=== PATIENT | female | born 1945 | race Caucasian/White ===

== ENCOUNTER 2023-05-14 19:48 | Inpatient (IN) ==
--- NOTE | 2023-05-14 20:09 | Emergency Department Note ---
Impression & Plan Hyponatremia, CKD (chronic kidney disease) stage 3, GFR 30-59 ml/min, Fatigue ED Provider Note NAME: BHASKAR JEAN BAPTISTE AGE: 77 SEX: F : 1945 ARRIVES VIA: Walk-In INFORMANT: Patient, ED PROVIDER(S): Geoff Chen MD CHIEF COMPLAINT: Weakness and fatigue, outpatient referral MEDICAL DECISION MAKING: Patient presents for weakness and fatigue and was an outpatient referral due to concern for low sodium. I did receive a phone call from the nephrology department stating that the patient's sodium was in the 1 teens. IV was established blood work was obtained the patient was Andra ordered urine and serum awesome's as well as urine electrolytes and IV fluids. The patient's blood work shows a normal white count hemoglobin and platelet count. CKD stage III noted. Hyponatremia persistent 117. The patient was admitted to the medicine service by Dr. Stewart. Prior /Outside records reviewed: I did review the patient's blood work from earlier today. Differential diagnosis: Primary polydipsia, medication side effect, SIADH, salt wasting, kidney dysfunction among others were considered Diagnostics, as interpreted by me: ECG: Normal sinus rhythm, rate of 60, normal intervals, normal axis no ST elevations. Cardiac monitoring: An order was placed for continuous cardiac monitoring. The monitor shows a rate of 65 with sinus rhythm. Patient was placed on pulse oximetry Medical decision rules: None Imaging studies: See below I informally reviewed the patient's chest x-ray which shows cardiomegaly and prominence of the right mundo. HPI: Patient presents due to concern for weakness and fatigue which is ongoing the last several days. No nausea vomiting or diarrhea. The patient was called after some routine blood work and was noted to have low sodium in the 110s. The patient does admit to an increase in free water drinking 5 bottles of water daily. Patient also has been taking hydrochlorothiazide and Aldactone. Patient denies any falls or trauma. Patient states that she was on 4 different blood pressure medications at 1 time and that different specialties have been changing her medications including cardiology nephrology and her primary care doctor. Patient does follow with Dr. Garza with [facility]. PAST MEDICAL HISTORY: See Below PAST SURGICAL HISTORY: See Below SOCIAL HISTORY: See Below HOME MEDICATIONS: See Below ALLERGIES: See Below VITALS: See Below PHYSICAL EXAMINATION: GENERAL: NAD, wearing glasses, non-toxic. EYE EXAM: Normal conjunctiva. PERRL, no anisocoria and EOM's grossly intact w/o pain. NECK: Supple, no nuchal rigidity, no adenopathy, non-tender. No signs of meningismus. FROM of the neck with good chin to chest and neck extension. No stridor. LUNGS: Clear to auscultation. Normal chest wall mechanics. HEART: NSR, no MRG. ABDOMEN: Abdomen soft, non-tender, no masses, no rebound or guarding. BACK: No CVA TTP. SKIN: No rashes and no bruising. UPPER EXTREMITIES: Upper extremities are grossly normal. LOWER EXTREMITIES: Grossly normal, no edema. NEURO EXAM: A&O x3, cranial nerves II-XII grossly intact, normal speech, moves all 4 extremities. Past Med/Surg History Medical History Anxiety Depression Difficult airway for intubation in 2015 for hip replacement in [facility] anesthesia doc told her he had difficulty intubating her Fatigue History of COVID-19 diagnosed 01/2020--difficulty breathing was admitted to [facility] and had to be on oxygen--still experiencing brain fog and dyspnea with exertion History of left breast cancer diagnosed 12/2020--sx and on oral chemo Hyperlipidemia Hypertension Hypothyroidism IBS (irritable bowel syndrome) Macular degeneration Osteoarthritis Plantar fasciitis of left foot Post-COVID chronic dyspnea Scoliosis Surgical History History of arthroscopy of left knee x2 History of bilateral cataract extraction History of bilateral tubal ligation History of cardiac cath (~2006) @ [facility]--no stents History of cholecystectomy History of colonoscopy History of esophagogastroduodenoscopy (EGD) History of left breast biopsy malignant History of left hip replacement History of lumpectomy of left breast with lymph node removal History of open reduction and internal fixation (ORIF) procedure right ankle--hardware in place History of oral surgery dental implants History of right hip replacement History of tonsillectomy and adenoidectomy History of tooth extraction Family History Other No family history of adverse response to anesthesia Social History Smoking Status: Never smoker Second Hand Exposure: No; Do You Dip or Chew Tobacco: No; Hx Alcohol Use: Yes Alcohol Intake Frequency: Never Hx Substance Use: Yes (used medical marijuana in 2016) Preferred Language: Kyrgyz Communication Ability: Effective Recreational Leader Required: No Beliefs That Will Affect Care: None Current Living Situation: Family Current Living Situation Comment: Has own apartment in her daughter's residence Other Information That Helps Us Care for You: No Feels Safe at Home: Yes Safety Concerns: Feels Safe At This Time Diet: low salt and regular caffeine: Yes Physical Activity Frequency: Does not Exercise Assistive Devices: Cane and Glasses Allergies Allergies Allergy/AdvReac Type Severity Reaction Status Date / Time adhesive Allergy Intermediate severe Verified 05/14/23 14:37 itching sulfamethoxazole Allergy Mild Rash Verified 05/14/23 14:37 [From Bactrim] trimethoprim [From Bactrim] Allergy Mild Rash Verified 05/14/23 14:37 Home Meds Home Medications Medication Instructions Recorded Confirmed L.acidophil-L.casei-B.bifid-B.longum-FOS 1 cap PO QAM 11/16/21 05/14/23 2 billion cell-50 mg capsule (Probiotic Blend) acyclovir 200 mg capsule 800 mg PO QID PRN nerve issues 11/16/21 05/14/23 alprazolam 1 mg tablet 1 mg PO TID 11/16/21 05/14/23 anastrozole 1 mg tablet 1 mg PO QAM 11/16/21 05/14/23 ascorbic acid (vitamin C) 1,000 mg 1 g PO QAM 11/16/21 05/14/23 tablet (Vitamin C) calcium carbonate 600 mg calcium 600 mg PO QPM 11/16/21 05/14/23 (1,500 mg) tablet (Calcium) cholecalciferol (vitamin D3) 25 1,000 unit PO 2XWK 11/16/21 05/14/23 mcg (1,000 unit) tablet (Vitamin D3) docusate sodium 100 mg tablet 100 mg PO QAM 11/16/21 05/14/23 (Stool Softener) glucosamine sulf dipot 1 cap PO BID 11/16/21 05/14/23 chlr,msm,chond 550 mg-C 30 mg-guy 1 mg capsule (Glucosamine Chondroitin) levothyroxine 100 mcg tablet 100 mcg PO QAM 11/16/21 05/14/23 kxidxrgjosey-ywkpombh-jeodxl tablet 1 tab PO QAM 11/16/21 05/14/23 omega-3 fatty acids 1 mg PO BID 11/16/21 05/14/23 omeprazole 20 mg tablet,delayed 20 mg PO BID 11/16/21 05/14/23 release simvastatin 40 mg tablet 40 mg PO PM 11/16/21 05/14/23 vitamin A-vitamin C-vit E-min 1 tab PO QPM 11/16/21 05/14/23 tablet amlodipine 5 mg tablet 5 mg PO DAILY 04/03/23 05/14/23 atenolol 50 mg tablet 25 mg PO QAM 04/03/23 05/14/23 biotin 5,000 mcg disintegrating 10,000 mcg PO QPM 04/03/23 05/14/23 tablet escitalopram oxalate 20 mg tablet 20 mg PO DAILY 04/03/23 05/14/23 hydralazine 25 mg tablet 25 mg PO TID 04/03/23 05/14/23 meclizine 12.5 mg tablet 12.5 mg PO TID PRN .dizzyness 04/03/23 05/14/23 valsartan 160 mg tablet 160 mg PO DAILY 04/17/23 05/14/23 Previous Rx's Medication Instructions Recorded spironolactone 25 1 tab PO DAILY #30 tabs 05/10/23 mg-hydrochlorothiazide 25 mg tablet (Aldactazide) Results & Data (ED) Vital Signs Vital Signs - 24 hr 05/14/23 19:49 Temperature 36.5 C Temperature Source Temporal Artery Scan Pulse Rate 66 Respiratory Rate 18 Respiratory Effort / Characteristics Non-Labored Spontaneous Respiratory Depth Normal Blood Pressure 146/75 H Blood Pressure Mean 98 Blood Pressure Position Sitting Pulse Oximetry 96 Oxygen Delivery Method Room Air Sepsis Recent Fever Within 48 Hours No Sepsis New/Unexplained Change in Mental Status No Sepsis Action Taken by Nursing No Action Required Home Medications Current Medication List: was personally reviewed by me Laboratory Data Attestation: I reviewed the patient's lab results. 05/14/23 20:12 05/14/23 20:12 Lab Results 05/14/23 05/14/23 05/14/23 Range/Units 20:12 20:12 20:12 WBC 8.37 (4.8-10.8) K/ul RBC 4.26 (4.20-5.40) M/uL Hgb 13.6 (12.0-16.0) g/dl Hct 35.9 L (37.0-47.0) % MCV 84.3 (80.0-100.0) fL MCH 31.9 (25.0-34.0) pg MCHC 37.9 H (32.0-36.0) g/dL RDW Std Deviation 34.5 L (36.4-46.3) fL RDW Coeff of Sachin 11.2 L (11.5-14.5) % Plt Count 243 (130-400) K/uL MPV 8.6 L (9.4-12.4) fL Immature Gran % (Auto) 0.5 % Neut % (Auto) 69.2 % Lymph % (Auto) 20.1 % [place] % (Auto) 7.9 % Eos % (Auto) 1.9 % Baso % (Auto) 0.4 % Neut # (Auto) 5.80 (1.40-6.50) K/uL Lymph # (Auto) 1.68 (1.2-3.4) K/uL [place] # (Auto) 0.66 H (0.11-0.59) K/uL Eos # (Auto) 0.16 (0-0.50) K/uL Baso # (Auto) 0.03 (0-0.2) K/uL Immature Gran # (Auto) 0.04 (0.01-0.20) K/uL Sodium 117 L* (136-145) mmol/L Potassium 3.9 (3.5-5.1) mmol/L Chloride 86 L (98-107) mmol/L Carbon Dioxide 22 (21-32) mmol/L Anion Gap 9 (3-11) BUN 28 H (6-23) mg/dl Creatinine 1.57 H (0.6-1.2) mg/dl Est Cr Clr Drug Dosing 31.1 ml/min Est GFR ( Amer) 36.7 ml/min Est GFR (Non-Af Amer) 31.7 ml/min BUN/Creatinine Ratio 17.8 (10-20) Glucose 111 H (70-99(Fasting)) mg/dl Osmolality 255 L (280-300) mOsm/kg Calcium 9.7 (8.6-10.3) mg/dl Phosphorus 3.7 (2.5-4.9) mg/dl Magnesium 1.9 (1.7-2.4) mg/dl Total Bilirubin 0.6 (0.2-1.0) mg/dl AST 25 (13-39) U/L ALT 20 (7-52) U/L Alkaline Phosphatase 72 (34-104) U/L Total Protein 7.3 (6.0-8.3) gm/dl Albumin 4.6 (3.4-5.0) gm/dl Globulin 2.7 (2.5-4.0) gm/dl Albumin/Globulin Ratio 1.7 (0.9-2) TSH (0.300-4.500) uIu/ml 05/14/23 Range/Units 20:12 WBC (4.8-10.8) K/ul RBC (4.20-5.40) M/uL Hgb (12.0-16.0) g/dl Hct (37.0-47.0) % MCV (80.0-100.0) fL MCH (25.0-34.0) pg MCHC (32.0-36.0) g/dL RDW Std Deviation (36.4-46.3) fL RDW Coeff of Sachin (11.5-14.5) % Plt Count (130-400) K/uL MPV (9.4-12.4) fL Immature Gran % (Auto) % Neut % (Auto) % Lymph % (Auto) % [place] % (Auto) % Eos % (Auto) % Baso % (Auto) % Neut # (Auto) (1.40-6.50) K/uL Lymph # (Auto) (1.2-3.4) K/uL [place] # (Auto) (0.11-0.59) K/uL Eos # (Auto) (0-0.50) K/uL Baso # (Auto) (0-0.2) K/uL Immature Gran # (Auto) (0.01-0.20) K/uL Sodium (136-145) mmol/L Potassium (3.5-5.1) mmol/L Chloride (98-107) mmol/L Carbon Dioxide (21-32) mmol/L Anion Gap (3-11) BUN (6-23) mg/dl Creatinine (0.6-1.2) mg/dl Est Cr Clr Drug Dosing ml/min Est GFR ( Amer) ml/min Est GFR (Non-Af Amer) ml/min BUN/Creatinine Ratio (10-20) Glucose (70-99(Fasting)) mg/dl Osmolality (280-300) mOsm/kg Calcium (8.6-10.3) mg/dl Phosphorus (2.5-4.9) mg/dl Magnesium (1.7-2.4) mg/dl Total Bilirubin (0.2-1.0) mg/dl AST (13-39) U/L ALT (7-52) U/L Alkaline Phosphatase (34-104) U/L Total Protein (6.0-8.3) gm/dl Albumin (3.4-5.0) gm/dl Globulin (2.5-4.0) gm/dl Albumin/Globulin Ratio (0.9-2) TSH 2.791 (0.300-4.500) uIu/ml Administered Medications Discontinued Medications Alprazolam (Alprazolam 0.5 Mg Tablet) 1 mg PO NOW STA Stop: 05/14/23 23:25 Last Admin: 05/14/23 23:36 Dose: 1 mg Documented By: KARON Sodium Chloride (Nss 1000ml) 1,000 mls @ 999 mls/hr IV .Q1H1M ERNA Stop: 05/14/23 21:15 Last Admin: 05/14/23 20:57 Dose: Not Given Documented By: DONALD Sodium Chloride (Nss 1000ml) 500 mls @ 999 mls/hr IV .Q31M ONE Stop: 05/14/23 23:17 Last Infusion: 05/14/23 23:57 Dose: 0 mls/hr Documented By: Admin: 05/14/23 23:26 Dose: 999 mls/hr Documented By: KARON Discharge Plan Visit Data Chief Complaint: Abnormal Labs/Diagnostic Testing Stated Complaint: EXTREMELY LOW SODIUM ED Provider: Geoff Chen Discharge Problem: Hyponatremia, CKD (chronic kidney disease) stage 3, GFR 30-59 ml/min, Fatigue Patient Disposition: Admitted As Inpatient Discharge Instructions Interventions: ED Discharge Assessment Last Done: 05/14/23 21:49 CKD (chronic kidney disease) stage 3, GFR 30-59 ml/min Qualifiers: Chronic kidney disease stage 3 subtype: unspecified whether 3a or 3b Qualified Code(s): N18.30 - Chronic kidney disease, stage 3 unspecified Fatigue Qualifiers: Fatigue type: other Qualified Code(s): R53.83 - Other fatigue
[2023-05-14] MEDS ORDERED: SODIUM CHLORIDE 0.9% 1000ML 1,000 ML IV SCH (20:15)
[2023-05-14 20:36] LABS: Basophils # (auto) 0.03 K/uL (0-0.2); Basophils % (auto) 0.4 %; Eosinophils # (auto) 0.16 K/uL (0-0.50); Eosinophils % (auto) 1.9 %; Hematocrit (blood only) 35.9 % (37.0-47.0); Hemoglobin 13.6 g/dl (12.0-16.0); Immature Granulocytes # (auto) 0.04 K/uL (0.01-0.20); Immature Granulocytes % (auto) 0.5 %; Lymphocytes # (auto) 1.68 K/uL (1.2-3.4); Lymphocytes % (auto) 20.1 %; Mean Corpuscular Hemoglobin 31.9 pg (25.0-34.0); Mean Corpuscular Hgb Conc 37.9 g/dL (32.0-36.0); Mean Corpuscular Volume 84.3 fL (80.0-100.0); Mean Platelet Volume 8.6 fL (9.4-12.4); Monocytes # (auto) 0.66 K/uL (0.11-0.59); Monocytes % (auto) 7.9 %; Neutrophils % (auto) 69.2 %; Platelet Count 243 K/uL (130-400); RDW Coefficient of Variation 11.2 % (11.5-14.5); RDW Standard Deviation 34.5 fL (36.4-46.3); Red Blood Count 4.26 M/uL (4.20-5.40); White Blood Count 8.37 K/ul (4.8-10.8)
[2023-05-14 21:02] LABS: Appearance Urine Clear (Clear); Bacteria Urine Automated Negative (Negative); Bilirubin Urine Negative (Negative); Blood Urine Negative (Negative); Cast Urine Automated 0 /lpf (0-5); Color Urine Yellow; Epithelial Cell Urine Auto 20-30 /lpf (0-5); Glucose Urine UA Negative (Negative); Ketones Urine Negative (Negative); Leukocyte Esterase Urine 2+ (Negative); Nitrite Urine Negative (Negative); Protein Urine Trace (Negative); RBC Urine Automated 0-4 /hpf (0-4); Specific Gravity Urine 1.007 (1.000-1.030); Urobilinogen Urine Negative (Negative); pH Urine 6.5 (4.5-7.5)
[2023-05-14 21:04] LABS: Albumin Globulin Ratio 1.7 (0.9-2); Albumin Level 4.6 gm/dl (3.4-5.0); BUN Creatinine Ratio 17.8 (10-20); Bilirubin,Total 0.6 mg/dl (0.2-1.0); Calcium 9.7 mg/dl (8.6-10.3); Creatinine Clr Calc Pharmacy 31.1 ml/min; Est GFR (African American) 36.7 ml/min; Est GFR (Non-African American) 31.7 ml/min; Globulin 2.7 gm/dl (2.5-4.0); Magnesium 1.9 mg/dl (1.7-2.4); Phosphorus 3.7 mg/dl (2.5-4.9); Potassium 3.9 mmol/L (3.5-5.1); Total Protein 7.3 gm/dl (6.0-8.3)
[2023-05-14 21:17] LABS: Urine Potassium 23.2 mmol/L
--- NOTE | 2023-05-14 21:27 | History & Physical Report ---
Date of Service May 14, 2023 Assessment & Plan (1) Hyponatremia: Plan: 77yo female with treatment resistant hypertension likely secondary to primary aldosteronism presenting with acute hyponatremia. Patient's Jr=819. On 04/17/23 Na was 138. Patient is on HCTZ/Spironolactone. She is following a low Na diet and drinking an increased amount of free water as well. Likely mixed picture. Patient's creatinine is slightly increased from prior - Cr=1.57 from 1.48 Hypotonic, euvolemic to slightly hypovolemic. Asymptomatic. Serum osmolality is low at 255 Urine osmolality is low at 198 and urine Na=18 -Admit to PCU -Administer 500mL NSS bolus -Repeat BMP q 4 hours -Hold HCTZ/Spironolactone -Free water restrict 1200mL -Consider Nephrology consultation (2) Hypothyroidism: Plan: Chronic. TSH normal at 2.79 -Continue Synthroid 100mcg po daily (3) Chronic kidney disease, stage III (moderate): Plan: BUN and Cr mildly increased from prior. Patient reports normal UOP -NSS x 500mL -Repeat chemistry as above, q 4 hours (4) Hypertension: Plan: -Continue Amlodipine -Continue Atenolol -Continue Hydralazine 25mg po TID -Hold Valsartan for now - monitor renal function and resume tomorrow if able -Holding HCTZ/Spironolactone -Monitor BP (5) Primary aldosteronism: Plan: Patient has been seen by Neprhology for workup of her treatment resistant hypertension. She had suppressed renin and elevated aldosterone which suggests primary hyperaldosteronism. She did have a sodium load test performed which did not suppress appropriately which argues against primary aldosteronism. Patient has been on HCTZ/Spironolactone. She reports that through the addition of Spironolactone her blood pressure has been better controlled at home. Ideally she will be able to be restarted on Spironolactone after Na level improves History of Present Illness Chief Complaint: hyponatremia Primary Care Provider: Alisia Deutsch DO Annie Soto is a 77yo female with history of depression, HLP, Hypothyroid, CKD and treatment resistant HTN - suspected secondary hyperaldosteronism/primary aldosteronism. Patient has been seen by Cardiology in the past for management of her treatment resistant hypertension and has most recently been following with [facility]. She reports compliance with her low Na diet at home. On 04/17/23 she was started on Valsartan 160mg daily as well as Spironolactone/HCTZ 25mg-25mg daily. She had been on Valsartan/HCTZ prior. Her Na level on 04/17/23 was 138. She was seen by Nephrology today 05/14/23 and had orders placed for workup of her CKD and accelerated HTN. She had a chemistry performed which revealed hyponatremia, Na of 117. Patient was contacted and instructed to come to the ER. She is complaining of generalized weakness and fatigue as well as some mild nausea but denies dizziness, imbalance, falls, seizure or other neurological complaints. Denies vomiting or diarrhea. She is urinating per usual. She has been eating well. She reports she has been compliant with her medication changes. She has been eating a low sodium diet and has been drinking an increased amount of free water - approximately 5 bottles (16oz) daily. In the ER she is mildly hypertensive at 146/75, otherwise HD stable. No additional complaints at this time. Allergies Allergy/AdvReac Type Severity Reaction Status Date / Time adhesive Allergy Intermediate severe Verified 05/14/23 14:37 itching sulfamethoxazole Allergy Mild Rash Verified 05/14/23 14:37 [From Bactrim] trimethoprim [From Bactrim] Allergy Mild Rash Verified 05/14/23 14:37 Home Medications Medication Instructions Recorded Confirmed Type L.acidophil-L.casei-B.bifid-B.longum-FOS 1 cap PO QAM 11/16/21 05/14/23 History 2 billion cell-50 mg capsule (Probiotic Blend) acyclovir 200 mg capsule 800 mg PO QID PRN nerve issues 11/16/21 05/14/23 History alprazolam 1 mg tablet 1 mg PO TID 11/16/21 05/14/23 History anastrozole 1 mg tablet 1 mg PO QAM 11/16/21 05/14/23 History ascorbic acid (vitamin C) 1,000 mg 1 g PO QAM 11/16/21 05/14/23 History tablet (Vitamin C) calcium carbonate 600 mg calcium 600 mg PO QPM 11/16/21 05/14/23 History (1,500 mg) tablet (Calcium) cholecalciferol (vitamin D3) 25 1,000 unit PO 2XWK 11/16/21 05/14/23 History mcg (1,000 unit) tablet (Vitamin D3) docusate sodium 100 mg tablet 100 mg PO QAM 11/16/21 05/14/23 History (Stool Softener) glucosamine sulf dipot 1 cap PO BID 11/16/21 05/14/23 History chlr,msm,chond 550 mg-C 30 mg-guy 1 mg capsule (Glucosamine Chondroitin) levothyroxine 100 mcg tablet 100 mcg PO QAM 11/16/21 05/14/23 History yvrlyzhukpmw-rewxuuef-poaund tablet 1 tab PO QAM 11/16/21 05/14/23 History omega-3 fatty acids 1 mg PO BID 11/16/21 05/14/23 History omeprazole 20 mg tablet,delayed 20 mg PO BID 11/16/21 05/14/23 History release simvastatin 40 mg tablet 40 mg PO PM 11/16/21 05/14/23 History vitamin A-vitamin C-vit E-min 1 tab PO QPM 11/16/21 05/14/23 History tablet amlodipine 5 mg tablet 5 mg PO DAILY 04/03/23 05/14/23 History atenolol 50 mg tablet 25 mg PO QAM 04/03/23 05/14/23 History biotin 5,000 mcg disintegrating 10,000 mcg PO QPM 04/03/23 05/14/23 History tablet escitalopram oxalate 20 mg tablet 20 mg PO DAILY 04/03/23 05/14/23 History hydralazine 25 mg tablet 25 mg PO TID 04/03/23 05/14/23 History meclizine 12.5 mg tablet 12.5 mg PO TID PRN .dizzyness 04/03/23 05/14/23 History valsartan 160 mg tablet 160 mg PO DAILY 04/17/23 05/14/23 History spironolactone 25 1 tab PO DAILY #30 tabs 05/10/23 05/14/23 Rx mg-hydrochlorothiazide 25 mg tablet (Aldactazide) Past Med/Surg History Medical History Anxiety Depression Difficult airway for intubation in 2015 for hip replacement in [facility] anesthesia doc told her he had difficulty intubating her Fatigue History of COVID-19 diagnosed 01/2020--difficulty breathing was admitted to [facility] and had to be on oxygen--still experiencing brain fog and dyspnea with exertion History of left breast cancer diagnosed 12/2020--sx and on oral chemo Hyperlipidemia Hypertension Hypothyroidism IBS (irritable bowel syndrome) Macular degeneration Osteoarthritis Plantar fasciitis of left foot Post-COVID chronic dyspnea Scoliosis Surgical History History of arthroscopy of left knee x2 History of bilateral cataract extraction History of bilateral tubal ligation History of cardiac cath (~2006) @ [facility]--no stents History of cholecystectomy History of colonoscopy History of esophagogastroduodenoscopy (EGD) History of left breast biopsy malignant History of left hip replacement History of lumpectomy of left breast with lymph node removal History of open reduction and internal fixation (ORIF) procedure right ankle--hardware in place History of oral surgery dental implants History of right hip replacement History of tonsillectomy and adenoidectomy History of tooth extraction Family History Other No family history of adverse response to anesthesia Social History Smoking Status: Never smoker Second Hand Exposure: No; Do You Dip or Chew Tobacco: No; Hx Alcohol Use: No Hx Substance Use: No Preferred Language: Bruneian Communication Ability: Effective Auto Refinisher Required: No Beliefs That Will Affect Care: None Current Living Situation: Family Current Living Situation Comment: lives in apartment in daughter's house Feels Safe at Home: Yes Diet: low salt and regular caffeine: Yes Physical Activity Frequency: Does not Exercise Assistive Devices: Glasses Review of Systems Review of Systems: All systems reviewed & are unremarkable except as noted in HPI & below Physical Exam Physical Exam: General: patient resting comfortably, NAD, non-toxic in appearance, AA&O x 4, answers questions appropriately and follows commands. Skin: warm, dry, intact, no rashes or lesions HEENT: NC/AT, PERRL, EOMI, anicteric sclera, conjunctiva without injection, external ear normal to inspection and nontender, nares patent, moist mucus membranes, dentition intact, no oropharyngeal lesions, neck supple, trachea midline, no LAD, no thyromegaly, no JVD Heart: +S1/S2, regular, no m/r/g Lungs: equal air entry bilaterally, no rales/rhonchi/wheezes Abd: +BS, soft, NT/ND, no masses/organomegaly/ascites Ext: warm, 2+ pulses in UE/LE bilaterally, no clubbing/cyanosis or edema Neuro: nonfocal, patient AA&O x 4, speech intact, no facial droop, moving all extremities on command with equal strength 5/5 Results & Data Results & Data Vital Signs (Past 12 Hours) Vital Signs Temp Pulse Resp BP Pulse Ox O2 Del Method 05/14/23 19:49 36.5 C 66 18 146/75 H 96 Room Air Laboratory Results Laboratory Results WBC 8.37 K/ul (4.8-10.8) 05/14/23 20:12 RBC 4.26 M/uL (4.20-5.40) 05/14/23 20:12 Hgb 13.6 g/dl (12.0-16.0) 05/14/23 20:12 Hct 35.9 % (37.0-47.0) L 05/14/23 20:12 MCV 84.3 fL (80.0-100.0) 05/14/23 20:12 MCH 31.9 pg (25.0-34.0) 05/14/23 20:12 MCHC 37.9 g/dL (32.0-36.0) H 05/14/23 20:12 RDW Std Deviation 34.5 fL (36.4-46.3) L 05/14/23 20:12 RDW Coeff of [place] 11.2 % (11.5-14.5) L 05/14/23 20:12 Plt Count 243 K/uL (130-400) 05/14/23 20:12 MPV 8.6 fL (9.4-12.4) L 05/14/23 20:12 Immature Gran % (Auto) 0.5 % 05/14/23 20:12 Neut % (Auto) 69.2 % 05/14/23 20:12 Lymph % (Auto) 20.1 % 05/14/23 20:12 [place] % (Auto) 7.9 % 05/14/23 20:12 Eos % (Auto) 1.9 % 05/14/23 20:12 Baso % (Auto) 0.4 % 05/14/23 20:12 Neut # (Auto) 5.80 K/uL (1.40-6.50) 05/14/23 20:12 Lymph # (Auto) 1.68 K/uL (1.2-3.4) 05/14/23 20:12 [place] # (Auto) 0.66 K/uL (0.11-0.59) H 05/14/23 20:12 Eos # (Auto) 0.16 K/uL (0-0.50) 05/14/23 20:12 Baso # (Auto) 0.03 K/uL (0-0.2) 05/14/23 20:12 Immature Gran # (Auto) 0.04 K/uL (0.01-0.20) 05/14/23 20:12 Sodium 117 mmol/L (136-145) L* 05/14/23 20:12 Potassium 3.9 mmol/L (3.5-5.1) 05/14/23 20:12 Chloride 86 mmol/L (98-107) L 05/14/23 20:12 Carbon Dioxide 22 mmol/L (21-32) 05/14/23 20:12 Anion Gap 9 (3-11) 05/14/23 20:12 BUN 28 mg/dl (6-23) H 05/14/23 20:12 Creatinine 1.57 mg/dl (0.6-1.2) H 05/14/23 20:12 Est Cr Clr Drug Dosing 31.1 ml/min 05/14/23 20:12 Est GFR ( Amer) 36.7 ml/min 05/14/23 20:12 Est GFR (Non-Af Amer) 31.7 ml/min 05/14/23 20:12 BUN/Creatinine Ratio 17.8 (10-20) 05/14/23 20:12 Glucose 111 mg/dl (70-99(Fasting)) H 05/14/23 20:12 Osmolality 255 mOsm/kg (280-300) L 05/14/23 20:12 Calcium 9.7 mg/dl (8.6-10.3) 05/14/23 20:12 Phosphorus 3.7 mg/dl (2.5-4.9) 05/14/23 20:12 Magnesium 1.9 mg/dl (1.7-2.4) 05/14/23 20:12 Total Bilirubin 0.6 mg/dl (0.2-1.0) 05/14/23 20:12 AST 25 U/L (13-39) 05/14/23 20:12 ALT 20 U/L (7-52) 05/14/23 20:12 Alkaline Phosphatase 72 U/L (34-104) 05/14/23 20:12 Total Protein 7.3 gm/dl (6.0-8.3) 05/14/23 20:12 Albumin 4.6 gm/dl (3.4-5.0) 05/14/23 20:12 Globulin 2.7 gm/dl (2.5-4.0) 05/14/23 20:12 Albumin/Globulin Ratio 1.7 (0.9-2) 05/14/23 20:12 Urine Color Yellow 05/14/23 Unknown Urine Appearance Clear (Clear) 05/14/23 Unknown Urine pH 6.5 (4.5-7.5) 05/14/23 Unknown Ur Specific [place] 1.007 (1.000-1.030) 05/14/23 Unknown Urine Protein Trace (Negative) H 05/14/23 Unknown Urine Glucose (UA) Negative (Negative) 05/14/23 Unknown Urine Ketones Negative (Negative) 05/14/23 Unknown Urine Blood Negative (Negative) 05/14/23 Unknown Urine Nitrite Negative (Negative) 05/14/23 Unknown Urine Bilirubin Negative (Negative) 05/14/23 Unknown Urine Urobilinogen Negative (Negative) 05/14/23 Unknown Ur Leukocyte Esterase 2+ (Negative) H 05/14/23 Unknown Urine WBC (Auto) 10-30 /hpf (0-5) H 05/14/23 Unknown Urine RBC (Auto) 0-4 /hpf (0-4) 05/14/23 Unknown U Hyaline Cast (Auto) 0 /lpf (0-5) 05/14/23 Unknown U Epithel Cells (Auto) 20-30 /lpf (0-5) H 05/14/23 Unknown Urine Bacteria (Auto) Negative (Negative) 05/14/23 Unknown Urine Osmolality 198 mOsm/kg (500-800) L 05/14/23 Unknown Urine Sodium 18 mmol/L 05/14/23 Unknown Urine Potassium 23.2 mmol/L 05/14/23 Unknown Urine Chloride 28 mmol/L 05/14/23 Unknown SARS-CoV-2, RNA, NAAT NEGATIVE (NEGATIVE) 05/14/23 Unknown ECG Additional Comments: EKG with NSR at 60, normal axis, MQ=302, LGI=791, IBo=234. No acute ischemic changes PG Care Time/CCT Total # of Minutes Spent Total Time Spent with Patient: Total time spent is greater than 50% in coordination of care (as documented) at patient's floor/unit and/or counseling patient: Coding Level of Care Code 92558 INT INP/OBS CARE 3/75MIN Diagnoses Hyponatremia E87.1 Hypothyroidism E03.9 Chronic kidney disease, stage III (moderate) N18.30 Hypertension I10 Primary aldosteronism E26.09
[2023-05-14] MEDS ORDERED: ONDANSETRON INJ 2 MG/ML 2 ML VIAL IV PRN (22:47)
[2023-05-14] MEDS ORDERED: ACETAMINOPHEN 325 MG TAB PO PRN (22:47)
[2023-05-14] MEDS ORDERED: SODIUM CHLORIDE 0.9% 1000ML 500 ML IV ONE (22:47)
[2023-05-14] MEDS ORDERED: ALPRAZolam 0.5 MG TABLET PO STA (23:24)
[2023-05-14 23:58] LABS: BUN Creatinine Ratio 18.4 (10-20); Calcium 9.1 mg/dl (8.6-10.3); Creatinine Clr Calc Pharmacy 34.7 ml/min; Est GFR (African American) 41.8 ml/min; Est GFR (Non-African American) 36.1 ml/min; Potassium 3.6 mmol/L (3.5-5.1)
[2023-05-15 03:47] LABS: BUN Creatinine Ratio 18.5 (10-20); Calcium 8.9 mg/dl (8.6-10.3); Creatinine Clr Calc Pharmacy 35.8 ml/min; Est GFR (African American) 44.1 ml/min; Potassium 3.7 mmol/L (3.5-5.1)
[2023-05-15 03:49] LABS: Hematocrit (blood only) 32.2 % (37.0-47.0); Hemoglobin 12.1 g/dl (12.0-16.0); Mean Corpuscular Hemoglobin 31.8 pg (25.0-34.0); Mean Corpuscular Hgb Conc 37.6 g/dL (32.0-36.0); Mean Corpuscular Volume 84.5 fL (80.0-100.0); Mean Platelet Volume 8.5 fL (9.4-12.4); Platelet Count 208 K/uL (130-400); RDW Coefficient of Variation 11.2 % (11.5-14.5); RDW Standard Deviation 34.6 fL (36.4-46.3); Red Blood Count 3.81 M/uL (4.20-5.40); White Blood Count 8.78 K/ul (4.8-10.8)
[2023-05-15] MEDS: LEVOTHYROXINE SODIUM 100 MCG TABLET PO SCH (05:48)
--- NOTE | 2023-05-15 06:30 | Hospitalist Progress Note ---
Date of Service May 15, 2023 Assessment & Plan (1) Hyponatremia: Present on Admission?: Yes (2) CKD (chronic kidney disease) stage 3, GFR 30-59 ml/min: Present on Admission?: Yes (3) Hypertension: Present on Admission?: Yes (4) Primary aldosteronism: Present on Admission?: Yes (5) Chronic kidney disease, stage III (moderate): Present on Admission?: Yes (6) Hypothyroidism: Present on Admission?: Yes Plan #Hyponatremia Na+ 117-->119-->120-->121 Hypotonic, euvolemic, hypovoemic Urine Osm 198 Urine Na+ 18 Serum Osm 198 Continue fluid restriction Appreciate nephro recs: lasix 20mg po qD, spironolactone 25mg po qD, hold HCTZ, avoid salt restriction #Hypothyroidism Chronic, TSH 2.79 Continue synthroid 100mcg po daily #CKD, Stage 3 BUN, Cr mildly increased from prior. #Hypertension Monitor BP (159/77 @ 22:30, 120/64 @02:54) Continue amlodipine Continue Atenolol Continue Hydralazine Consider restarting Valsartan if BP climbs, Cr back to baseline 1.31 today Hold HCTZ #Primary Aldosteronism Follows with nephro Hx supressed renin and elevated aldosterone suggestive of primary aldosteronism However, had sodium load test which was inadequately suppressive: argues against primary aldosteronism Following addition of spironolactone home BPs have improved Restart spironolactone once Na+ level improves Admission and Anticipated Discharge Date Admission Date: May 14, 2023 Supervising Physician Co-Signing Physician Notes ATTESTATION I also saw the patient and confirmed kelley portions of the history and exam. I agree with the impression and plan in the resident documentation, and as summarized below. Upon our afternoon exam, the patient is semireclined in bed. No new complaints. Daughter is at bedside. Clarification -outpatient serum sodium was 117 (not 111 as previously reported). It sounds as if the patient was drinking quite a bit of water -she purchased cases of water -after being instructed to stay well-hydrated (presumably after the addition of the diuretics). In addition to increasing her consumption of water, she has also been pretty strict in terms of dietary sodium EXAM 143/78, 56, 18, 36.3, 95% on room air Pleasant. Alert. No distress. Heart regular rate and rhythm. 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 Prisoner Classification Interviewer notified 05/14/23 of Na 117, pt sent to ER. On presentation Na 117. Home meds include spironolactone/HCTZ follows low Na diet, drinking increased volume free water (+)generalized weakness and fatigue, "brain fog" (-) dizziness, instability, falls, seizures Resting comfortably this AM. Continues to have "brain fog". In NAD. Review of Systems Review of Systems: Reviewed, as above Physical Exam Physical Exam: General: patient resting comfortably, NAD, non-toxic in appearance, AA&O x 4, answers questions appropriately and follows commands. Skin: warm, dry, intact, no rashes or lesions HEENT: NC/AT, PERRL, EOMI, anicteric sclera, conjunctiva without injection, external ear normal to inspection and nontender, nares patent, moist mucus membranes, dentition intact, no oropharyngeal lesions, neck supple, trachea midline, no LAD, no thyromegaly, no JVD Heart: +S1/S2, regular, no m/r/g Lungs: equal air entry bilaterally, no rales/rhonchi/wheezes Abd: +BS, soft, NT/ND, no masses/organomegaly/ascites Ext: warm, 2+ pulses in UE/LE bilaterally, no clubbing/cyanosis or edema Neuro: nonfocal, patient AA&O x 4, speech intact, no facial droop, moving all extremities on command with equal strength 5/5 Results & Data Results & Data Vital Signs (Past 12 Hours) Vital Signs Temp 36.3 C L 05/15/23 07:32 Pulse 56 L 05/15/23 07:32 Resp 18 05/15/23 07:32 BP 143/78 H 05/15/23 07:32 Pulse Ox 95 05/15/23 07:32 O2 Del Method Room Air 05/15/23 07:32 Intake & Output 05/14/23 05/15/23 05/15/23 18:59 06:59 18:59 Intake Total 600 / 600 Output Total 601 / 601 Balance -1 / -1 Weight 86.7 kg Intake: IV 500 / 500 Sodium Chloride 0.9% 1000ML 500 500 / 500 ml @ 999 mls/hr IV .Q31M ONE Rx#:[id number] Oral 100 / 100 Output: Urine 600 / 600 # Bowel Movements Other: # Unmeasured Voids 1 Weight Measurement Method Built in [facility] Vital Signs Temp Pulse Pulse Resp BP BP Pulse Ox 05/15/23 02:54 36.5 C 53 L 20 120/64 94 05/14/23 22:48 65 05/14/23 22:30 36.7 C 61 18 159/77 H 97 05/14/23 21:49 63 20 136/80 95 05/14/23 19:49 36.5 C 66 18 146/75 H 96 O2 Del Method 05/15/23 02:54 Room Air 05/14/23 22:48 05/14/23 22:30 Room Air 05/14/23 21:49 Room Air 05/14/23 19:49 Room Air Laboratory Results Most recent lab results 05/15/23 05/15/23 05/15/23 Range/Units 05:37 03:16 03:16 WBC 8.78 (4.8-10.8) K/ul RBC 3.81 L (4.20-5.40) M/uL Hgb 12.1 (12.0-16.0) g/dl Hct 32.2 L (37.0-47.0) % MCV 84.5 (80.0-100.0) fL MCH 31.8 (25.0-34.0) pg MCHC 37.6 H (32.0-36.0) g/dL RDW Std Deviation 34.6 L (36.4-46.3) fL RDW Coeff of [place] 11.2 L (11.5-14.5) % Plt Count 208 (130-400) K/uL MPV 8.5 L (9.4-12.4) fL Immature Gran % (Auto) % Neut % (Auto) % Lymph % (Auto) % [place] % (Auto) % Eos % (Auto) % Baso % (Auto) % Neut # (Auto) (1.40-6.50) K/uL Lymph # (Auto) (1.2-3.4) K/uL [place] # (Auto) (0.11-0.59) K/uL Eos # (Auto) (0-0.50) K/uL Baso # (Auto) (0-0.2) K/uL Immature Gran # (Auto) (0.01-0.20) K/uL Sodium 121 L 120 L (136-145) mmol/L Potassium 3.6 3.7 (3.5-5.1) mmol/L Chloride 92 L 91 L (98-107) mmol/L Carbon Dioxide 20 L 21 (21-32) mmol/L Anion Gap 9 8 (3-11) BUN 24 H 25 H (6-23) mg/dl Creatinine 1.31 H 1.35 H (0.6-1.2) mg/dl Est Cr Clr Drug Dosing 36.9 35.8 ml/min Est GFR ( Amer) 45.7 44.1 ml/min Est GFR (Non-Af Amer) 39.5 38.0 ml/min BUN/Creatinine Ratio 18.3 18.5 (10-20) Glucose 121 H 108 H (70-99(Fasting)) mg/dl Osmolality (280-300) mOsm/kg Calcium 8.9 8.9 (8.6-10.3) mg/dl Phosphorus (2.5-4.9) mg/dl Magnesium (1.7-2.4) mg/dl Total Bilirubin (0.2-1.0) mg/dl AST (13-39) U/L ALT (7-52) U/L Alkaline Phosphatase (34-104) U/L Total Protein (6.0-8.3) gm/dl Albumin (3.4-5.0) gm/dl Globulin (2.5-4.0) gm/dl Albumin/Globulin Ratio (0.9-2) TSH (0.300-4.500) uIu/ml Urine Color Urine Appearance (Clear) Urine pH (4.5-7.5) Ur Specific [place] (1.000-1.030) Urine Protein (Negative) Urine Glucose (UA) (Negative) Urine Ketones (Negative) Urine Blood (Negative) Urine Nitrite (Negative) Urine Bilirubin (Negative) Urine Urobilinogen (Negative) Ur Leukocyte Esterase (Negative) Urine WBC (Auto) (0-5) /hpf Urine RBC (Auto) (0-4) /hpf U Hyaline Cast (Auto) (0-5) /lpf U Epithel Cells (Auto) (0-5) /lpf Urine Bacteria (Auto) (Negative) Urine Osmolality (500-800) mOsm/kg Urine Sodium mmol/L Urine Potassium mmol/L Urine Chloride mmol/L SARS-CoV-2, RNA, NAAT (NEGATIVE) 05/14/23 05/14/23 05/14/23 Range/Units Unknown Unknown Unknown WBC (4.8-10.8) K/ul RBC (4.20-5.40) M/uL Hgb (12.0-16.0) g/dl Hct (37.0-47.0) % MCV (80.0-100.0) fL MCH (25.0-34.0) pg MCHC (32.0-36.0) g/dL RDW Std Deviation (36.4-46.3) fL RDW Coeff of Sach[place] (11.5-14.5) % Plt Count (130-400) K/uL MPV (9.4-12.4) fL Immature Gran % (Auto) % Neut % (Auto) % Lymph % (Auto) % [place] % (Auto) % Eos % (Auto) % Baso % (Auto) % Neut # (Auto) (1.40-6.50) K/uL Lymph # (Auto) (1.2-3.4) K/uL [place] # (Auto) (0.11-0.59) K/uL Eos # (Auto) (0-0.50) K/uL Baso # (Auto) (0-0.2) K/uL Immature Gran # (Auto) (0.01-0.20) K/uL Sodium (136-145) mmol/L Potassium (3.5-5.1) mmol/L Chloride (98-107) mmol/L Carbon Dioxide (21-32) mmol/L Anion Gap (3-11) BUN (6-23) mg/dl Creatinine (0.6-1.2) mg/dl Est Cr Clr Drug Dosing ml/min Est GFR ( Amer) ml/min Est GFR (Non-Af Amer) ml/min BUN/Creatinine Ratio (10-20) Glucose (70-99(Fasting)) mg/dl Osmolality (280-300) mOsm/kg Calcium (8.6-10.3) mg/dl Phosphorus (2.5-4.9) mg/dl Magnesium (1.7-2.4) mg/dl Total Bilirubin (0.2-1.0) mg/dl AST (13-39) U/L ALT (7-52) U/L Alkaline Phosphatase (34-104) U/L Total Protein (6.0-8.3) gm/dl Albumin (3.4-5.0) gm/dl Globulin (2.5-4.0) gm/dl Albumin/Globulin Ratio (0.9-2) TSH (0.300-4.500) uIu/ml Urine Color Yellow Urine Appearance Clear (Clear) Urine pH 6.5 (4.5-7.5) Ur Specific [place] 1.007 (1.000-1.030) Urine Protein Trace H (Negative) Urine Glucose (UA) Negative (Negative) Urine Ketones Negative (Negative) Urine Blood Negative (Negative) Urine Nitrite Negative (Negative) Urine Bilirubin Negative (Negative) Urine Urobilinogen Negative (Negative) Ur Leukocyte Esterase 2+ H (Negative) Urine WBC (Auto) 10-30 H (0-5) /hpf Urine RBC (Auto) 0-4 (0-4) /hpf U Hyaline Cast (Auto) 0 (0-5) /lpf U Epithel Cells (Auto) 20-30 H (0-5) /lpf Urine Bacteria (Auto) Negative (Negative) Urine Osmolality 198 L (500-800) mOsm/kg Urine Sodium 18 mmol/L Urine Potassium 23.2 mmol/L Urine Chloride 28 mmol/L SARS-CoV-2, RNA, NAAT (NEGATIVE) 05/14/23 05/14/23 05/14/23 Range/Units Unknown 23:13 20:12 WBC (4.8-10.8) K/ul RBC (4.20-5.40) M/uL Hgb (12.0-16.0) g/dl Hct (37.0-47.0) % MCV (80.0-100.0) fL MCH (25.0-34.0) pg MCHC (32.0-36.0) g/dL RDW Std Deviation (36.4-46.3) fL RDW Coeff of Sachin (11.5-14.5) % Plt Count (130-400) K/uL MPV (9.4-12.4) fL Immature Gran % (Auto) % Neut % (Auto) % Lymph % (Auto) % [place] % (Auto) % Eos % (Auto) % Baso % (Auto) % Neut # (Auto) (1.40-6.50) K/uL Lymph # (Auto) (1.2-3.4) K/uL [place] # (Auto) (0.11-0.59) K/uL Eos # (Auto) (0-0.50) K/uL Baso # (Auto) (0-0.2) K/uL Immature Gran # (Auto) (0.01-0.20) K/uL Sodium 119 L* (136-145) mmol/L Potassium 3.6 (3.5-5.1) mmol/L Chloride 88 L (98-107) mmol/L Carbon Dioxide 21 (21-32) mmol/L Anion Gap 10 (3-11) BUN 26 H (6-23) mg/dl Creatinine 1.41 H (0.6-1.2) mg/dl Est Cr Clr Drug Dosing 34.7 ml/min Est GFR ( Amer) 41.8 ml/min Est GFR (Non-Af Amer) 36.1 ml/min BUN/Creatinine Ratio 18.4 (10-20) Glucose 129 H (70-99(Fasting)) mg/dl Osmolality (280-300) mOsm/kg Calcium 9.1 (8.6-10.3) mg/dl Phosphorus (2.5-4.9) mg/dl Magnesium (1.7-2.4) mg/dl Total Bilirubin (0.2-1.0) mg/dl AST (13-39) U/L ALT (7-52) U/L Alkaline Phosphatase (34-104) U/L Total Protein (6.0-8.3) gm/dl Albumin (3.4-5.0) gm/dl Globulin (2.5-4.0) gm/dl Albumin/Globulin Ratio (0.9-2) TSH 2.791 (0.300-4.500) uIu/ml Urine Color Urine Appearance (Clear) Urine pH (4.5-7.5) Ur Specific [place] (1.000-1.030) Urine Protein (Negative) Urine Glucose (UA) (Negative) Urine Ketones (Negative) Urine Blood (Negative) Urine Nitrite (Negative) Urine Bilirubin (Negative) Urine Urobilinogen (Negative) Ur Leukocyte Esterase (Negative) Urine WBC (Auto) (0-5) /hpf Urine RBC (Auto) (0-4) /hpf U Hyaline Cast (Auto) (0-5) /lpf U Epithel Cells (Auto) (0-5) /lpf Urine Bacteria (Auto) (Negative) Urine Osmolality (500-800) mOsm/kg Urine Sodium mmol/L Urine Potassium mmol/L Urine Chloride mmol/L SARS-CoV-2, RNA, NAAT NEGATIVE (NEGATIVE) 05/14/23 05/14/23 05/14/23 Range/Units 20:12 20:12 20:12 WBC 8.37 (4.8-10.8) K/ul RBC 4.26 (4.20-5.40) M/uL Hgb 13.6 (12.0-16.0) g/dl Hct 35.9 L (37.0-47.0) % MCV 84.3 (80.0-100.0) fL MCH 31.9 (25.0-34.0) pg MCHC 37.9 H (32.0-36.0) g/dL RDW Std Deviation 34.5 L (36.4-46.3) fL RDW Coeff of [place] 11.2 L (11.5-14.5) % Plt Count 243 (130-400) K/uL MPV 8.6 L (9.4-12.4) fL Immature Gran % (Auto) 0.5 % Neut % (Auto) 69.2 % Lymph % (Auto) 20.1 % [place] % (Auto) 7.9 % Eos % (Auto) 1.9 % Baso % (Auto) 0.4 % Neut # (Auto) 5.80 (1.40-6.50) K/uL Lymph # (Auto) 1.68 (1.2-3.4) K/uL [place] # (Auto) 0.66 H (0.11-0.59) K/uL Eos # (Auto) 0.16 (0-0.50) K/uL Baso # (Auto) 0.03 (0-0.2) K/uL Immature Gran # (Auto) 0.04 (0.01-0.20) K/uL Sodium 117 L* (136-145) mmol/L Potassium 3.9 (3.5-5.1) mmol/L Chloride 86 L (98-107) mmol/L Carbon Dioxide 22 (21-32) mmol/L Anion Gap 9 (3-11) BUN 28 H (6-23) mg/dl Creatinine 1.57 H (0.6-1.2) mg/dl Est Cr Clr Drug Dosing 31.1 ml/min Est GFR ( Amer) 36.7 ml/min Est GFR (Non-Af Amer) 31.7 ml/min BUN/Creatinine Ratio 17.8 (10-20) Glucose 111 H (70-99(Fasting)) mg/dl Osmolality 255 L (280-300) mOsm/kg Calcium 9.7 (8.6-10.3) mg/dl Phosphorus 3.7 (2.5-4.9) mg/dl Magnesium 1.9 (1.7-2.4) mg/dl Total Bilirubin 0.6 (0.2-1.0) mg/dl AST 25 (13-39) U/L ALT 20 (7-52) U/L Alkaline Phosphatase 72 (34-104) U/L Total Protein 7.3 (6.0-8.3) gm/dl Albumin 4.6 (3.4-5.0) gm/dl Globulin 2.7 (2.5-4.0) gm/dl Albumin/Globulin Ratio 1.7 (0.9-2) TSH (0.300-4.500) uIu/ml Urine Color Urine Appearance (Clear) Urine pH (4.5-7.5) Ur Specific [place] (1.000-1.030) Urine Protein (Negative) Urine Glucose (UA) (Negative) Urine Ketones (Negative) Urine Blood (Negative) Urine Nitrite (Negative) Urine Bilirubin (Negative) Urine Urobilinogen (Negative) Ur Leukocyte Esterase (Negative) Urine WBC (Auto) (0-5) /hpf Urine RBC (Auto) (0-4) /hpf U Hyaline Cast (Auto) (0-5) /lpf U Epithel Cells (Auto) (0-5) /lpf Urine Bacteria (Auto) (Negative) Urine Osmolality (500-800) mOsm/kg Urine Sodium mmol/L Urine Potassium mmol/L Urine Chloride mmol/L SARS-CoV-2, RNA, NAAT (NEGATIVE) Resident Activity Tracking Resident Involvement: Resident Care Provided Care Provided: Adult Hospital Medicine (2) CKD (chronic kidney disease) stage 3, GFR 30-59 ml/min Chronic kidney disease stage 3 subtype: unspecified whether 3a or 3b Qualified Code(s): N18.30 - Chronic kidney disease, stage 3 unspecified
[2023-05-15 06:51] LABS: BUN Creatinine Ratio 18.3 (10-20); Calcium 8.9 mg/dl (8.6-10.3); Creatinine Clr Calc Pharmacy 36.9 ml/min; Est GFR (African American) 45.7 ml/min; Est GFR (Non-African American) 39.5 ml/min; Potassium 3.6 mmol/L (3.5-5.1)
--- NOTE | 2023-05-15 07:28 | XRay Report ---
SINGLE VIEW CHEST CLINICAL HISTORY: Generalized weakness. FINDINGS: An AP, portable, upright chest radiograph is obtained. No prior studies are available for c omparison at the time of dictation. The examination is degraded by portable technique and patient rot ation. The heart is enlarged noting atherosclerotic calcification of the thoracic aorta. There is pu lmonary vascular congestion. Scarring/atelectasis is present at both lung bases. No airspace consolid ation or large pleural effusion is identified. No pneumothorax is seen. The skeletal structures are o steopenic. The bony thorax is grossly intact. Bulky calcific tendinopathy is noted in the left should er. Degenerative change and scoliosis is noted in the spine. IMPRESSION: Cardiomegaly with pulmonary vascular congestion. ACT 112: Negative or not required by law. Electronically signed by: Kenny Mock M.D. 05/15/2023 7:27 AM
[2023-05-15] MEDS: ATENOLOL 25 MG TABLET PO SCH (08:33)
[2023-05-15] MEDS: amLODIPine BESYLATE 5 MG TAB PO SCH (08:34)
[2023-05-15] MEDS: ESCITALOPRAM OXALATE 20 MG TAB PO SCH (08:34)
[2023-05-15] MEDS: ANASTROZOLE 1 MG TAB PO SCH (08:34)
[2023-05-15] MEDS: hydrALAZINE HCL 25 MG TAB PO SCH ×3 (08:34→22:01)
[2023-05-15] MEDS: PANTOprazole 40 MG TAB PO SCH (08:34)
[2023-05-15] MEDS: ALPRAZolam 0.5 MG TABLET PO SCH ×3 (08:40→22:01)
[2023-05-15 11:49] LABS: BUN Creatinine Ratio 17.4 (10-20); Calcium 9.4 mg/dl (8.6-10.3); Creatinine Clr Calc Pharmacy 36.7 ml/min; Est GFR (African American) 45.3 ml/min; Est GFR (Non-African American) 39.1 ml/min; Potassium 4.2 mmol/L (3.5-5.1)
--- NOTE | 2023-05-15 12:58 | Nephrology Consultation ---
Date of Consultation May 15, 2023 Assessment & Plan (1) Hyponatremia: (2) Hypertension: (3) Fatigue: Plan Hyponatremia with prior normal serum sodium, sodium was 117 and last sodium from 04/17/2023 was 138 with no prior known history of hyponatremia although we do not have record before March 2023. she was recently started on spironolactone and hydrochlorothiazide for poorly controlled hypertension, in addition to that she has been drinking more in water to keep her well-hydrated and completely avoiding salt in her diet, which could be contributing to acute hyponatremia. Sodium slightly improved to 121 after receiving 2 L of normal saline since admission last night. Urine osmolality was low at 197. No history of hypothyroidism or adrenal insufficiency, in fact there was concern for primary hyperaldosteronism but salt loading testing did not support that. She did r eport her blood pressure much improved after started on spironolactone. -- start on Lasix 20 mg daily, continue on spironolactone 25 mg, amlodipine. Avoid thiazide type diuretics in future. -- check serum sodium now, Continue to monitor serum sodium q.6 hours discharge until sodium close to at least 130 -- avoid strict salt restriction, ok to keep salt intake around 2 mg/d, avoid excessive free water intake. Thank you for allowing me to participate in your patient's care. It was a pleasure to see Annie History of Present Illness Reason for Consultation: Acute hyponatremia Attending Physician: Fabricio Dong DO History of Present Illness Aris Clifton is a 77-year-old female with past medical history significant for poorly controlled hypertension, admitted to the hospital with acute hyponatremia. Nephrology consult was requested for further management. EMR records are reviewed in detail during patient's visit. Annie had a routine lab ordered from hypertension clinic yesterday showed acute hyponatremia with serum sodium 117, prior serum sodium was 138 on 04/17/2023. She was called and advised to stop HCTZ and go to ER last evening. She has been having poorly-controlled hypertension and recently there was concern for primary aldosteronism however salt loading test did not support the diagnosis of primary hyperaldosteronism. She was on spironolactone 50/hydrochlorothiazide 25 mg/d. she reported feeling just fatigued Over the last few days and has been progressively worsening and yesterday overall she was feeling "awful" but did not really understand why she was feeling that way. She felt like she needs to eat something salty to make her feel better as she has been completely avoiding salt in her diet over last few weeks since she was found to have poorly controlled hypertension and advised to follow low-salt diet. She reports she also has been drinking a lot to keep her well hydrated. Denied NSAID use. In ER hemodynamically she was otherwise stable. She was initially given 1 L of IV fluid bolus and overnight serum sodium improved to 121 and stayed at 121 since this morning. Urine osmolality was appropriately low < 200. Blood pressure has been quite variable but mostly fairly controlled and better than her recent blood pressures. She was continued on amlodipine 5 mg daily and atenolol 25 mg daily. She has been getting evaluated for poorly controlled hypertension. She was noted to have elevated Aldosterone/renin levels, labs from February 2023 reflect renin <0.1 and aldosterone of 35.5 with history of hypokalemia for years, were suspicious for primary aldosteronism however aldosterone was suppressed appropriately with salt loading test done recently which argues against primary hyperaldosteronism. 2D echo from 11/26 shows ef 55% with no LVH. Has history of stage III B CKD b/l cr 1.4 to 1.5, records available only from 03/20/23, thought to be secondary to microvascular disease and hypertensive nephrosclerosis, has been following with Dr. Ortega. Urinalysis with low-grade proteinuria, microalbumin creatinine ratio was 600, noted to have pyuria without bacteriuria or microscopic hematuria. No renal imaging available. no f/h of CKD, ESRD. Never smoker. Retired, moved to [place] 2 years ago to be close to her daughter. has history of breast cancer diagnosed in 2020, had lumpectomy and currently on hormone therapy, did not read radiation or chemo. No history of diabetes, coronary artery disease or CHF. She still feels weak and tired but feels slightly better than yesterday. Allergies Allergy/AdvReac Type Severity Reaction Status Date / Time adhesive Allergy Intermediate severe Verified 05/14/23 14:37 itching sulfamethoxazole Allergy Mild Rash Verified 05/14/23 14:37 [From Bactrim] trimethoprim [From Bactrim] Allergy Mild Rash Verified 05/14/23 14:37 Home Medications Medication Instructions Recorded Confirmed Type L.acidophil-L.casei-B.bifid-B.longum-FOS 1 cap PO QAM 11/16/21 05/14/23 History 2 billion cell-50 mg capsule (Probiotic Blend) acyclovir 200 mg capsule 800 mg PO QID PRN nerve issues 11/16/21 05/14/23 History alprazolam 1 mg tablet 1 mg PO TID 11/16/21 05/14/23 History anastrozole 1 mg tablet 1 mg PO QAM 11/16/21 05/14/23 History ascorbic acid (vitamin C) 1,000 mg 1 g PO QAM 11/16/21 05/14/23 History tablet (Vitamin C) calcium carbonate 600 mg calcium 600 mg PO QPM 11/16/21 05/14/23 History (1,500 mg) tablet (Calcium) cholecalciferol (vitamin D3) 25 1,000 unit PO 2XWK 11/16/21 05/14/23 History mcg (1,000 unit) tablet (Vitamin D3) docusate sodium 100 mg tablet 100 mg PO QAM 11/16/21 05/14/23 History (Stool Softener) glucosamine sulf dipot 1 cap PO BID 11/16/21 05/14/23 History chlr,msm,chond 550 mg-C 30 mg-guy 1 mg capsule (Glucosamine Chondroitin) levothyroxine 100 mcg tablet 100 mcg PO QAM 11/16/21 05/14/23 History qqdkkjtephmc-brrclvsb-yxpuky tablet 1 tab PO QAM 11/16/21 05/14/23 History omega-3 fatty acids 1 mg PO BID 11/16/21 05/14/23 History omeprazole 20 mg tablet,delayed 20 mg PO BID 11/16/21 05/14/23 History release simvastatin 40 mg tablet 40 mg PO PM 11/16/21 05/14/23 History vitamin A-vitamin C-vit E-min 1 tab PO QPM 11/16/21 05/14/23 History tablet amlodipine 5 mg tablet 5 mg PO DAILY 04/03/23 05/14/23 History atenolol 50 mg tablet 25 mg PO QAM 04/03/23 05/14/23 History biotin 5,000 mcg disintegrating 10,000 mcg PO QPM 04/03/23 05/14/23 History tablet escitalopram oxalate 20 mg tablet 20 mg PO DAILY 04/03/23 05/14/23 History hydralazine 25 mg tablet 25 mg PO TID 04/03/23 05/14/23 History meclizine 12.5 mg tablet 12.5 mg PO TID PRN .dizzyness 04/03/23 05/14/23 History valsartan 160 mg tablet 160 mg PO DAILY 04/17/23 05/14/23 History spironolactone 25 1 tab PO DAILY #30 tabs 05/10/23 05/14/23 Rx mg-hydrochlorothiazide 25 mg tablet (Aldactazide) Patient History Medical History Anxiety Depression Difficult airway for intubation in 2015 for hip replacement in [facility] anesthesia doc told her he had difficulty intubating her Fatigue History of COVID-19 diagnosed 01/2020--difficulty breathing was admitted to [facility] and had to be on oxygen--still experiencing brain fog and dyspnea with exertion History of left breast cancer diagnosed 12/2020--sx and on oral chemo Hyperlipidemia Hypertension Hypothyroidism IBS (irritable bowel syndrome) Macular degeneration Osteoarthritis Plantar fasciitis of left foot Post-COVID chronic dyspnea Scoliosis Surgical History History of arthroscopy of left knee x2 History of bilateral cataract extraction History of bilateral tubal ligation History of cardiac cath (~2006) @ [facility]--no stents History of cholecystectomy History of colonoscopy History of esophagogastroduodenoscopy (EGD) History of left breast biopsy malignant History of left hip replacement History of lumpectomy of left breast with lymph node removal History of open reduction and internal fixation (ORIF) procedure right ankle--hardware in place History of oral surgery dental implants History of right hip replacement History of tonsillectomy and adenoidectomy History of tooth extraction Family History Other No family history of adverse response to anesthesia Social History Smoking Status: Never smoker Second Hand Exposure: No; Do You Dip or Chew Tobacco: No; Hx Alcohol Use: Yes Alcohol Intake Frequency: Never Hx Substance Use: Yes (used medical marijuana in 2015) Preferred Language: [place] Communication Ability: Effective Licensed Surveyor Required: No Beliefs That Will Affect Care: None Current Living Situation: Family Current Living Situation Comment: Has own apartment in her daughter's residence Other Information That Helps Us Care for You: No Feels Safe at Home: Yes Safety Concerns: Feels Safe At This Time Diet: low salt and regular caffeine: Yes Physical Activity Frequency: Does not Exercise Assistive Devices: Cane and Glasses Review of Systems Review of Systems: Detailed review of system was otherwise unremarkable except mentioned above. Physical Exam Constitutional: WD/WN, vitals as above no acute distress Eyes: + anicteric sclerae Neck: normal visual inspection Thyroid: no thyromegaly Respiratory: normal respiratory effort; no respiratory distress and no cough Auscultation: lungs clear to auscultation bilaterally Cardiovascular: RRR, no murmur, no edema Gastrointestinal (Abdomen): Inspection/Auscultation: abdomen normal to inspection Percussion/Palpation: abdomen soft; abdomen nontender Musculoskeletal: Extremities: extremities normal to inspection Skin: no rashes, warm and dry Neurologic: no focal motor deficits and not confused Psychiatric: Orientation: alert and oriented x 3 Affect: euthymic affect Results & Data Vital Signs (Past 12 Hours) Vital Signs Temp Pulse Pulse Resp BP Pulse Ox O2 Del Method 05/15/23 11:50 Room Air 05/15/23 10:09 53 L 05/15/23 07:32 36.3 C L 56 L 18 143/78 H 95 Room Air 05/15/23 02:54 36.5 C 53 L 20 120/64 94 Room Air PG Care Time/CCT Total # of Minutes Spent Total Time Spent with Patient: Total time spent is greater than 50% in coordination of care (as documented) at patient's floor/unit and/or counseling patient: Coding Level of Care Code 85292 IN/OBS CONSULT LVL 5,80M Diagnoses Hyponatremia E87.1 Hypertension I10 Fatigue R53.83 Fatigue type: other (3) Fatigue Fatigue type: other Qualified Code(s): R53.83 - Other fatigue
[2023-05-15] MEDS ORDERED: FUROSEMIDE 20 MG TAB PO SCH ×2 (14:30→16:00)
[2023-05-15] MEDS: SPIRONOLACTONE 25 MG TAB PO SCH (15:12)
[2023-05-15 17:00] LABS: BUN Creatinine Ratio 15.8 (10-20); Creatinine Clr Calc Pharmacy 31.8 ml/min; Est GFR (African American) 38.2 ml/min; Potassium 4.3 mmol/L (3.5-5.1)
--- NOTE | 2023-05-15 17:50 | Electrocardiogram Report ---
Test Reason : Blood Pressure : / mmHG Vent. Rate : 060 BPM Atrial Rate : 060 BPM P-R Int : 182 ms QRS Dur : 102 ms QT Int : 436 ms P-R-T Axes : 044 002 045 degrees QTc Int : 436 ms Normal sinus rhythm Moderate voltage criteria for LVH, may be normal variant Borderline ECG No previous ECGs available Confirmed by Carl Stout ([id number]) on 05/15/2023 5:49:57 PM Referred By: Jayda Yadav Confirmed By:Carl Stout
[2023-05-15] MEDS ORDERED: MELATONIN 3 MG TAB PO PRN (21:15)
[2023-05-15] MEDS: SIMVASTATIN 40 MG TAB PO SCH (22:01)
[2023-05-15 22:52] LABS: BUN Creatinine Ratio 17.2 (10-20); Calcium 9.3 mg/dl (8.6-10.3); Creatinine Clr Calc Pharmacy 30.8 ml/min; Est GFR (African American) 36.7 ml/min; Est GFR (Non-African American) 31.7 ml/min; Potassium 3.8 mmol/L (3.5-5.1)
[2023-05-16 04:44] LABS: Albumin Level 3.9 gm/dl (3.4-5.0); BUN Creatinine Ratio 17.8 (10-20); Calcium 9.2 mg/dl (8.6-10.3); Creatinine Clr Calc Pharmacy 28.6 ml/min; Est GFR (African American) 33.6 ml/min; Phosphorus 4.5 mg/dl (2.5-4.9); Potassium 4.1 mmol/L (3.5-5.1)
[2023-05-16] MEDS: LEVOTHYROXINE SODIUM 100 MCG TABLET PO SCH (06:09)
--- NOTE | 2023-05-16 07:01 | Ultrasound Report ---
US duplex renal artery CLINICAL HISTORY: hypertension COMPARISON STUDY: None. FINDINGS: The right kidney measures 10.9 cm and the left kidney measures 16 cm. Multiple bilateral re nal cysts with the largest on the left measuring 7.3 cm. The bilateral renal veins are patent. Peak s ystolic velocities within the right renal artery is 116 cm/s and the left renal artery is 94 cm/s. No hydronephrosis. IMPRESSION: 1. No evidence for renal artery stenosis. 2. Bilateral renal cysts. 3. No hydronephrosis. ACT 112: Negative or not required by law. Electronically signed by: Balwinder Childress M.D. 05/16/2023 6:59 AM
--- NOTE | 2023-05-16 07:16 | Hospitalist Progress Note ---
Date of Service May 16, 2023 Assessment & Plan (1) Hyponatremia: (2) CKD (chronic kidney disease) stage 3, GFR 30-59 ml/min: (3) Hypertension: (4) Primary aldosteronism: (5) Hypothyroidism: Plan #Hyponatremia Na+ 117-->119-->120-->121-->125-->127 Remove fluid restriction, d/c lasix, continue to encourage reasonable salt intake Appreciate nephro recs: spironolactone 25mg po qD, hold lasix, hold HCTZ, avoid salt restriction #Hypothyroidism Chronic, TSH 2.79 Continue synthroid 100mcg po daily #CKD, Stage 3 BUN, Cr mildly increased from prior. Cr 1.32-->1.57-->1.69 (baseline 1.3-1.4) Renal US 05/16/23 no renal artery stenosis, no renal cysts, no hydronephrosis b/l #Hypertension BP Stable 120s-130s/60s-70s over past 24hrs Continue to monitor Continue amlodipine Continue Atenolol Continue Hydralazine Consider restarting Valsartan if BP climbs, Cr back to baseline 1.31 today Hold HCTZ #Primary Aldosteronism Follows with nephro Hx supressed renin and elevated aldosterone suggestive of primary aldosteronism However, had sodium load test which was inadequately suppressive: argues against primary aldosteronism Following addition of spironolactone home BPs have improved Restart spironolactone once Na+ level improves Admission and Anticipated Discharge Date Admission Date: May 14, 2023 Supervising Physician Co-Signing Physician Notes ATTESTATION I also saw the patient and confirmed kelley portions of the history and exam. I agree with the impression and plan in the resident documentation, and as summarized below. Upon my morning exam, she reports generally feeling better. EXAM 148/77, 69, 16, 36.8, 90% room air Pleasant. Alert. No distress. Heart regular rate and rhythm. Lungs clear with nonlabored respirations DATA Labs Sodium 127 BUN 30, creatinine 1.69 Imaging Renal ultrasound completed 05/14/2023 showed no evidence of renal artery stenosis, bilateral renal cyst, no hydronephrosis. IMPRESSION & PLAN Hyponatremia, suspect hypervolemic, improving Appreciate nephrology consultation Repeat BMP this afternoon If continues to improve at present (and appropriate) rate, may be ready for discharge tomorrow Fortunately, blood pressure is maintained fairly well controlled At present on amlodipine 5 once daily, hydralazine 25 three times daily, and Aldactone 25 mg once daily Patient was on valsartan prior to admission; will discuss with nephrology if they want her on some amount of ARB upon discharge Avoid thiazide diuretics in the future Additional per resident documentation Subjective 77 yo female PMHx depression, HLP, hypothyroidism, CKD and treatment resistant hypertension likely secondary to primary aldosteronism presents with acute hyponatremia. Rn Ante Partum notified 05/14/23 of Na 117, pt sent to ER. On presentation Na 117. Home meds include spironolactone/HCTZ follows low Na diet, drinking increased volume free water (+)generalized weakness and fatigue, "brain fog" (-) dizziness, instability, falls, seizures Resting comfortably this AM. Feeling better today. In NAD. Review of Systems Review of Systems: reviewed, as above Physical Exam Physical Exam: General: patient resting comfortably, NAD, non-toxic in appearance, AA&O x 4, answers questions appropriately and follows commands. Skin: warm, dry, intact, no rashes or lesions HEENT: NC/AT, PERRL, EOMI, anicteric sclera, conjunctiva without injection, external ear normal to inspection and nontender, nares patent, moist mucus membranes, dentition intact, no oropharyngeal lesions, neck supple, trachea midline, no LAD, no thyromegaly, no JVD Heart: +S1/S2, regular, no m/r/g Lungs: equal air entry bilaterally, no rales/rhonchi/wheezes Abd: +BS, soft, NT/ND, no masses/organomegaly/ascites Ext: warm, 2+ pulses in UE/LE bilaterally, no clubbing/cyanosis or edema Neuro: nonfocal, patient AA&O x 4, speech intact, no facial droop, moving all extremities on command with equal strength 5/5 Results & Data Results & Data Vital Signs (Past 12 Hours) Vital Signs Temp Pulse Pulse Resp BP Pulse Ox O2 Del Method 05/16/23 03:00 36.8 C 64 16 132/71 92 Room Air 05/15/23 22:06 67 05/15/23 23:00 36.6 C 62 21 122/68 93 Room Air 05/15/23 19:45 Room Air Laboratory Results Abnormal lab results 05/15/23 05/15/23 05/15/23 Range/Units 10:53 15:58 22:23 Sodium 121 L 123 L 125 L (136-145) mmol/L Chloride 92 L 93 L 95 L (98-107) mmol/L Carbon Dioxide 20 L 20 L (21-32) mmol/L BUN 24 H 27 H (6-23) mg/dl Creatinine 1.32 H 1.52 H 1.57 H (0.6-1.2) mg/dl Glucose 115 H 119 H 155 H (70-99(Fasting)) mg/dl 05/16/23 Range/Units 04:13 Sodium 127 L (136-145) mmol/L Chloride 97 L (98-107) mmol/L Carbon Dioxide (21-32) mmol/L BUN 30 H (6-23) mg/dl Creatinine 1.69 H (0.6-1.2) mg/dl Glucose 127 H (70-99(Fasting)) mg/dl Resident Activity Tracking Resident Involvement: Resident Care Provided Care Provided: Adult [facility] Medicine (2) CKD (chronic kidney disease) stage 3, GFR 30-59 ml/min Chronic kidney disease stage 3 subtype: unspecified whether 3a or 3b Qualified Code(s): N18.30 - Chronic kidney disease, stage 3 unspecified
[2023-05-16] MEDS: hydrALAZINE HCL 25 MG TAB PO SCH ×3 (09:36→20:40)
[2023-05-16] MEDS: SPIRONOLACTONE 25 MG TAB PO SCH (09:36)
[2023-05-16] MEDS: amLODIPine BESYLATE 5 MG TAB PO SCH (09:36)
[2023-05-16] MEDS: ESCITALOPRAM OXALATE 20 MG TAB PO SCH (09:37)
[2023-05-16] MEDS: PANTOprazole 40 MG TAB PO SCH (09:37)
[2023-05-16] MEDS: ATENOLOL 25 MG TABLET PO SCH (09:38)
[2023-05-16] MEDS: ANASTROZOLE 1 MG TAB PO SCH (09:38)
[2023-05-16] MEDS: ALPRAZolam 0.5 MG TABLET PO SCH ×3 (09:39→20:40)
--- NOTE | 2023-05-16 12:28 | Nephrology Progress Note ---
Date of Service May 16, 2023 Assessment & Plan (1) Hyponatremia: (2) Hypertension: (3) Fatigue: Plan Hyponatremia with prior normal serum sodium, sodium was 117 and last sodium from 04/17/2023 was 138 with no prior known history of hyponatremia although we do not have record before March 2023. she was recently started on spironolactone and hydrochlorothiazide for poorly controlled hypertension, in addition to that she has been drinking more in water to keep her well-hydrated and completely avoiding salt in her diet, which could be contributing to acute hyponatremia. Sodium slightly improved to 121 after receiving 2 L of normal saline since admission last night. Urine osmolality was low at 197. No history of hypothyroidism or adrenal insufficiency, in fact there was concern for primary hyperaldosteronism but salt loading testing did not support that. She did report her blood pressure much improved after started on spironolactone. Na improved to 127, BP much better, in fact most of the BP readings with SBP <130. Cr slightly increased with dual diuretics. -- Since BP responded much better to spironolactone, will keep on that and hold Lasix, hopefully Na will continue to improve with being off of HCTZ, less strict on avoiding salt and avoiding excessive free water intake. In future Lasix 20 mg daily can be considered again if Na remain low. Continue on amlodipine. --check renal panel this afternoon, hopefully can be discharged tomorrow if continue to improve. -- avoid strict salt restriction, ok to keep salt intake around 2 mg/d, avoid excessive free water intake. Admission and Anticipated Discharge Date Admission Date: May 14, 2023 Joseluis Valencia was seen this am, overall feeling much better but really does not feel she is back to her baseline yet. Na improved to 127. Cr slightly increased. BP much better controlled. Review of Systems Review of Systems: Detailed review of system was otherwise unremarkable except mentioned above. Physical Exam Constitutional: WD/WN, vitals as above no acute distress Eyes: + anicteric sclerae Respiratory: normal respiratory effort; no respiratory distress and no cough Auscultation: lungs clear to auscultation bilaterally Cardiovascular: RRR, no murmur, no edema Musculoskeletal: Extremities: extremities normal to inspection Skin: no rashes, warm and dry Neurologic: no focal motor deficits and not confused Psychiatric: Orientation: alert and oriented x 3 Affect: euthymic affect Results & Data Vital Signs (Past 12 Hours) Vital Signs Temp Pulse Pulse Resp BP Pulse Ox O2 Del Method 05/16/23 11:47 Room Air 05/16/23 11:00 36.8 C 69 16 148/77 H 97 Room Air 05/16/23 08:00 36.5 C 60 16 125/73 97 Room Air 05/16/23 08:26 55 L 05/16/23 03:00 36.8 C 64 16 132/71 92 Room Air PG Care Time/CCT Total # of Minutes Spent Total Time Spent with Patient: Total time spent is greater than 50% in coordination of care (as documented) at patient's floor/unit and/or counseling patient: Coding Level of Care Code 40123 SUB INP/OBS CARE 3/50MIN Diagnoses Hyponatremia E87.1 Hypertension I10 Fatigue R53.83 Fatigue type: other (3) Fatigue Fatigue type: other Qualified Code(s): R53.83 - Other fatigue
[2023-05-16 14:52] LABS: Calcium 9.2 mg/dl (8.6-10.3); Creatinine Clr Calc Pharmacy 25.1 ml/min; Est GFR (African American) 28.4 ml/min; Est GFR (Non-African American) 24.5 ml/min; Phosphorus 4.3 mg/dl (2.5-4.9); Potassium 4.5 mmol/L (3.5-5.1)
[2023-05-16] MEDS ORDERED: SODIUM CHLORIDE 0.9% 1000ML 500 ML IV ONE (16:25)
[2023-05-16] MEDS: SIMVASTATIN 40 MG TAB PO SCH (20:40)
[2023-05-16 21:08] LABS: Basophils # (auto) 0.04 K/uL (0-0.2); Basophils % (auto) 0.5 %; Eosinophils # (auto) 0.22 K/uL (0-0.50); Eosinophils % (auto) 2.6 %; Hematocrit (blood only) 33.1 % (37.0-47.0); Hemoglobin 11.9 g/dl (12.0-16.0); Immature Granulocytes # (auto) 0.05 K/uL (0.01-0.20); Immature Granulocytes % (auto) 0.6 %; Lymphocytes # (auto) 2.02 K/uL (1.2-3.4); Lymphocytes % (auto) 23.9 %; Mean Corpuscular Hemoglobin 31.5 pg (25.0-34.0); Mean Corpuscular Volume 87.6 fL (80.0-100.0); Mean Platelet Volume 8.7 fL (9.4-12.4); Monocytes % (auto) 7.1 %; Neutrophils # (auto) 5.51 K/uL (1.40-6.50); Neutrophils % (auto) 65.3 %; Platelet Count 204 K/uL (130-400); RDW Coefficient of Variation 11.5 % (11.5-14.5); RDW Standard Deviation 37.2 fL (36.4-46.3); Red Blood Count 3.78 M/uL (4.20-5.40); White Blood Count 8.44 K/ul (4.8-10.8)
[2023-05-16 21:22] LABS: Albumin Globulin Ratio 1.7 (0.9-2); Albumin Level 3.9 gm/dl (3.4-5.0); BUN Creatinine Ratio 19.8 (10-20); Bilirubin,Total 0.3 mg/dl (0.2-1.0); Calcium 8.7 mg/dl (8.6-10.3); Creatinine Clr Calc Pharmacy 29.2 ml/min; Est GFR (African American) 34.1 ml/min; Est GFR (Non-African American) 29.4 ml/min; Globulin 2.3 gm/dl (2.5-4.0); Magnesium 1.5 mg/dl (1.7-2.4); Potassium 4.1 mmol/L (3.5-5.1); Total Protein 6.2 gm/dl (6.0-8.3)
[2023-05-17] MEDS: LEVOTHYROXINE SODIUM 100 MCG TABLET PO SCH (05:54)
--- NOTE | 2023-05-17 06:36 | Hospitalist Progress Note ---
Date of Service May 17, 2023 Assessment & Plan (1) Hyponatremia: (2) CKD (chronic kidney disease) stage 3, GFR 30-59 ml/min: (3) Hypertension: (4) Primary aldosteronism: (5) Hypothyroidism: Plan #Hyponatremia Na+ 117-->119-->121-->125-->127-->123-->126-->130 Urine Na+ 26 Serum osm 268 Urine osm 169 Resume fluid restriction, consider restart lasix, continue to encourage reasonable salt intake Given picture of above stated lab values ddx includes SIADH, hypothyroidism, adrenal insufficiency, stress, pharmacologic Appreciate nephro recs: given 15mg tolvaptan, spironolactone 25mg po qD, hold lasix, hold HCTZ, avoid salt restriction #Hypothyroidism Chronic, TSH 2.79 Recheck today Continue synthroid 100mcg po daily #CKD, Stage 3 BUN, Cr mildly increased from prior. Cr 1.32-->1.57-->1.69-->1.57-->1.76 (baseline 1.3-1.4) Renal US 05/16/23 no renal artery stenosis, no renal cysts, no hydronephrosis b/l #Hypertension BP Stable 120s-130s/60s-70s over past 24hrs Continue to monitor Continue amlodipine Continue Atenolol Continue Hydralazine Consider restarting Valsartan if BP climbs, Cr back to baseline 1.31 today Hold HCTZ #Primary Aldosteronism Follows with nephro Hx supressed renin and elevated aldosterone suggestive of primary aldosteronism However, had sodium load test which was inadequately suppressive: argues against primary aldosteronism Following addition of spironolactone home BPs have improved Restart spironolactone once Na+ level improves Admission and Anticipated Discharge Date Admission Date: May 14, 2023 Supervising Physician Co-Signing Physician Notes ATTESTATION I also saw the patient and confirmed kelley portions of the history and exam. I agree with the impression and plan in the resident documentation, and as summarized below. Upon our midmorning exam, lying semireclined in bed. She is sleeping but awakens easily to voice. She has no new complaints. EXAM 149/71, 54, 18, 37, 97% on room air Pleasant. Alert. No distress. Heart regular rate and rhythm. Lungs clear with nonlabored respirations DATA Labs Sodium levels today 126, 130, 129 Imaging Renal ultrasound completed 05/14/2023 showed no evidence of renal artery stenosis, bilateral renal cyst, no hydronephrosis. IMPRESSION & PLAN Hyponatremia, suspect hypervolemic, improving Appreciate nephrology consultation Tolvaptan 15 mg x 1 dose today If continues to improve at present (and appropriate) rate, may be ready for discharge tomorrow Fortunately, blood pressure is maintained fairly well controlled At present on amlodipine 5 once daily, hydralazine 25 three times daily, and Aldactone 25 mg once daily Patient was on valsartan prior to admission; will discuss with nephrology if they want her on some amount of ARB upon discharge Avoid thiazide diuretics in the future Additional per resident documentation Subjective 77 yo female PMHx depression, HLP, hypothyroidism, CKD and treatment resistant hypertension likely secondary to primary aldosteronism presents with acute hyponatremia. Social Worker Clinical notified 05/14/23 of Na 117, pt sent to ER. On presentation Na 117. Home meds include spironolactone/HCTZ follows low Na diet, drinking increased volume free water Yesterday, Na began dropping and Cr began climbing. Received 500ml bolus NSS to challenge Cr. Cr decreased to 1.67 from 1.69, Na decreased further to 123. Pt again drinking large volume of free water after fluid restriction was lifted. @2100 05/16/13 Serum Na 123, Urine Na 26, Urine Osm 169, Serum Osm 268 pt appears euvolemic. Na improved to 126 on AM labs, creatinine down to 1.57 (+)generalized weakness and fatigue, "brain fog" (-) dizziness, instability, falls, seizures Resting comfortably this AM. In NAD. Feeling a bit "foggier" today. Review of Systems Review of Systems: Reviewed, as above Physical Exam Physical Exam: General: patient resting comfortably, NAD, non-toxic in appearance, AA&O x 4, answers questions appropriately and follows commands. Skin: warm, dry, intact, no rashes or lesions HEENT: NC/AT, PERRL, EOMI, anicteric sclera, conjunctiva without injection, external ear normal to inspection and nontender, nares patent, moist mucus membranes, dentition intact, no oropharyngeal lesions, neck supple, trachea midline, no LAD, no thyromegaly, no JVD Heart: +S1/S2, regular, no m/r/g Lungs: equal air entry bilaterally, no rales/rhonchi/wheezes Abd: +BS, soft, NT/ND, no masses/organomegaly/ascites Ext: warm, 2+ pulses in UE/LE bilaterally, no clubbing/cyanosis or edema Neuro: nonfocal, patient AA&O x 4, speech intact, no facial droop, moving all extremities on command with equal strength 5/5 Results & Data Results & Data Vital Signs (Past 12 Hours) Vital Signs Temp Pulse Pulse Resp BP Pulse Ox O2 Del Method 05/17/23 03:00 36.5 C 90 16 157/77 H 92 Room Air 05/16/23 22:01 62 05/16/23 23:00 37.0 C 60 17 143/77 H 96 Room Air 05/16/23 19:15 Room Air 05/16/23 19:00 36.5 C 60 19 145/76 H 97 Room Air Laboratory Results Abnormal lab results 05/16/23 05/16/23 05/16/23 Range/Units 14:10 20:32 20:34 RBC 3.78 L (4.20-5.40) M/uL Hgb 11.9 L (12.0-16.0) g/dl Hct 33.1 L (37.0-47.0) % MPV 8.7 L (9.4-12.4) fL [place] # (Auto) 0.60 H (0.11-0.59) K/uL Sodium 125 L (136-145) mmol/L Chloride 94 L (98-107) mmol/L BUN 31 H (6-23) mg/dl Creatinine 1.94 H (0.6-1.2) mg/dl Glucose 105 H (70-99(Fasting)) mg/dl Osmolality (280-300) mOsm/kg Magnesium (1.7-2.4) mg/dl Globulin (2.5-4.0) gm/dl Urine Osmolality 169 L (500-800) mOsm/kg 05/16/23 05/16/23 Range/Units 20:34 20:34 RBC (4.20-5.40) M/uL Hgb (12.0-16.0) g/dl Hct (37.0-47.0) % MPV (9.4-12.4) fL [place] # (Auto) (0.11-0.59) K/uL Sodium 123 L (136-145) mmol/L Chloride 93 L (98-107) mmol/L BUN 33 H (6-23) mg/dl Creatinine 1.67 H (0.6-1.2) mg/dl Glucose 115 H (70-99(Fasting)) mg/dl Osmolality 268 L (280-300) mOsm/kg Magnesium 1.5 L (1.7-2.4) mg/dl Globulin 2.3 L (2.5-4.0) gm/dl Urine Osmolality (500-800) mOsm/kg Resident Activity Tracking Resident Involvement: Resident Care Provided Care Provided: Adult Hospital Medicine (2) CKD (chronic kidney disease) stage 3, GFR 30-59 ml/min Chronic kidney disease stage 3 subtype: unspecified whether 3a or 3b Qualified Code(s): N18.30 - Chronic kidney disease, stage 3 unspecified
[2023-05-17 08:29] LABS: BUN Creatinine Ratio 17.8 (10-20); Calcium 9.1 mg/dl (8.6-10.3); Creatinine Clr Calc Pharmacy 31.2 ml/min; Est GFR (African American) 36.7 ml/min; Est GFR (Non-African American) 31.7 ml/min; Potassium 4.4 mmol/L (3.5-5.1)
[2023-05-17] MEDS: hydrALAZINE HCL 25 MG TAB PO SCH ×3 (08:31→20:27)
[2023-05-17] MEDS: ANASTROZOLE 1 MG TAB PO SCH (08:31)
[2023-05-17] MEDS: SPIRONOLACTONE 25 MG TAB PO SCH (08:31)
[2023-05-17] MEDS: ESCITALOPRAM OXALATE 20 MG TAB PO SCH (08:31)
[2023-05-17] MEDS: amLODIPine BESYLATE 5 MG TAB PO SCH (08:31)
[2023-05-17] MEDS: ATENOLOL 25 MG TABLET PO SCH (08:33)
[2023-05-17] MEDS: PANTOprazole 40 MG TAB PO SCH (08:33)
[2023-05-17] MEDS: ALPRAZolam 0.5 MG TABLET PO SCH ×3 (08:37→20:27)
[2023-05-17] MEDS ORDERED: TOLVAPTAN 15 MG TABLET PO STA (09:37)
--- NOTE | 2023-05-17 11:00 | Nephrology Progress Note ---
Date of Service May 17, 2023 Assessment & Plan (1) Hyponatremia: (2) Hypertension: (3) Fatigue: Plan Hyponatremia with prior normal serum sodium, sodium was 117 and last sodium from 04/17/2023 was 138 with no prior known history of hyponatremia although we do not have record before March 2023. she was recently started on spironolactone and hydrochlorothiazide for poorly controlled hypertension, in addition to that she has been drinking more in water to keep her well-hydrated and completely avoiding salt in her diet, which could be contributing to acute hyponatremia. Sodium slightly improved to 121 after receiving 2 L of normal saline since admission last night. Urine osmolality was low at 197. No history of hypothyroidism or adrenal insufficiency, in fact there was concern for primary hyperaldosteronism but salt loading testing did not support that. She did report her blood pressure much improved after started on spironolactone. Na staying relatively low around 123 to 126 this morning. Renal function relatively stable. --Tolvaptan 15 mg x 1 dose today, repeat sodium this afternoon, if Na improves and renal function stays stable, it will be OK to eb discharged this afternoon with outpt lab monitoring. Continue on amlodipine. -- avoid strict salt restriction, ok to keep salt intake around 2 mg/d, avoid excessive free water intake. Admission and Anticipated Discharge Date Admission Date: May 14, 2023 Subjective Annie was seen this am, she is status sodium again dropped to 123 yesterday and is that it was because she was advised to drink more yesterday which may have caused the sodium to drop. However, lab this morning showed sodium again improved to 126. she denied any specific symptoms but discouraged as she was looking forward to going home today. Review of Systems Review of Systems: Detailed review of system was otherwise unremarkable except mentioned above. Physical Exam Constitutional: WD/WN, vitals as above no acute distress Eyes: + anicteric sclerae Respiratory: no respiratory distress Auscultation: lungs clear to auscultation bilaterally Cardiovascular: RRR, no murmur, no edema Musculoskeletal: Extremities: extremities normal to inspection Skin: no rashes, warm and dry Neurologic: no focal motor deficits and not confused Psychiatric: Orientation: alert and oriented x 3 Affect: euthymic affect Results & Data Vital Signs (Past 12 Hours) Vital Signs Temp Pulse Pulse Resp BP Pulse Ox O2 Del Method 05/17/23 08:10 36.6 C 60 18 151/71 H 96 Room Air 05/17/23 07:54 56 L 05/17/23 03:00 36.5 C 90 16 157/77 H 92 Room Air 05/16/23 23:00 37.0 C 60 17 143/77 H 96 Room Air PG Care Time/CCT Total # of Minutes Spent Total Time Spent with Patient: Total time spent is greater than 50% in coordination of care (as documented) at patient's floor/unit and/or counseling patient: Coding Level of Care Code 93424 SUB INP/OBS CARE 3/50MIN Diagnoses Hyponatremia E87.1 Hypertension I10 Fatigue R53.83 Fatigue type: other (3) Fatigue Fatigue type: other Qualified Code(s): R53.83 - Other fatigue
[2023-05-17 15:42] LABS: BUN Creatinine Ratio 15.9 (10-20); Creatinine Clr Calc Pharmacy 27.8 ml/min; Est GFR (Non-African American) 27.6 ml/min; Phosphorus 4.2 mg/dl (2.5-4.9); Potassium 4.8 mmol/L (3.5-5.1)
[2023-05-17 16:18] LABS: BUN Creatinine Ratio 17.2 (10-20); Calcium 9.3 mg/dl (8.6-10.3); Creatinine Clr Calc Pharmacy 27.2 ml/min; Est GFR (African American) 31.1 ml/min; Est GFR (Non-African American) 26.9 ml/min; Potassium 5.1 mmol/L (3.5-5.1)
[2023-05-17] MEDS: SIMVASTATIN 40 MG TAB PO SCH (20:27)
[2023-05-18] MEDS: LEVOTHYROXINE SODIUM 100 MCG TABLET PO SCH (05:51)
--- NOTE | 2023-05-18 06:50 | Hospitalist Progress Note ---
Date of Service May 18, 2023 Assessment & Plan (1) Hyponatremia: (2) CKD (chronic kidney disease) stage 3, GFR 30-59 ml/min: (3) Hypertension: (4) Primary aldosteronism: (5) Hypothyroidism: Plan #Hyponatremia Na+ 117-->119-->121-->125-->127-->123-->126-->130-->135 Resume fluid restriction, received one dose tolvaptan, continue to encourage reasonable salt intake Given picture of above stated lab values ddx includes SIADH, hypothyroidism, adrenal insufficiency, stress, pharmacologic Appreciate nephro recs: given 15mg tolvaptan, spironolactone 25mg po qD, hold lasix, hold HCTZ, avoid salt restriction #Hypothyroidism Chronic, TSH 2.79 Recheck today Continue synthroid 100mcg po daily #CKD, Stage 3 BUN, Cr mildly increased from prior. Cr 1.32-->1.57-->1.69-->1.57-->1.76-->1.8 (baseline 1.3-1.4) Renal US 05/16/23 no renal artery stenosis, no renal cysts, no hydronephrosis b/l #Hypertension BP Stable 120s-130s/60s-70s over past 24hrs Continue to monitor Continue amlodipine Continue Atenolol Continue Hydralazine Consider restarting Valsartan if BP climbs, Cr back to baseline 1.31 today Hold HCTZ #Primary Aldosteronism Follows with nephro Hx supressed renin and elevated aldosterone suggestive of primary aldosteronism However, had sodium load test which was inadequately suppressive: argues against primary aldosteronism Following addition of spironolactone home BPs have improved Restart spironolactone once Na+ level improves Admission and Anticipated Discharge Date Admission Date: May 14, 2023 Supervising Physician Co-Signing Physician Notes I personally examined the patient and verified all kelley points of history and exam, discussed case, and agree with decision making and plan documented by Dr. Leung. Discussed dietary salt recommendations of 2 g daily as well as fluid r estriction with patient. Recommend repeat BMP in a couple days. Patient follows with nephrology closely. Subjective 77 yo female PMHx depression, HLP, hypothyroidism, CKD and treatment resistant hypertension likely secondary to primary aldosteronism presents with acute hyponatremia. Solar Engineer notified 05/14/23 of Na 117, pt sent to ER. On presentation Na 117. Home meds include spironolactone/HCTZ follows low Na diet, drinking increased volume free water (+)generalized weakness and fatigue, "brain fog" (-) dizziness, instability, falls, seizures Resting comfortably this AM. In NAD. Feeling better today. Eager to go home. Review of Systems Review of Systems: reviewed, as above Physical Exam Physical Exam: General: patient resting comfortably, NAD, non-toxic in appearance, AA&O x 4, answers questions appropriately and follows commands. Skin: warm, dry, intact, no rashes or lesions HEENT: NC/AT, PERRL, EOMI, anicteric sclera, conjunctiva without injection, external ear normal to inspection and nontender, nares patent, moist mucus membranes, dentition intact, no oropharyngeal lesions, neck supple, trachea midline, no LAD, no thyromegaly, no JVD Heart: +S1/S2, regular, no m/r/g Lungs: equal air entry bilaterally, no rales/rhonchi/wheezes Abd: +BS, soft, NT/ND, no masses/organomegaly/ascites Ext: warm, 2+ pulses in UE/LE bilaterally, no clubbing/cyanosis or edema Neuro: nonfocal, patient AA&O x 4, speech intact, no facial droop, moving all extremities on command with equal strength 5/5 Results & Data Results & Data Vital Signs (Past 12 Hours) Vital Signs Temp Pulse Pulse Resp BP Pulse Ox O2 Del Method 05/18/23 03:30 36.4 C L 58 L 18 124/69 93 Room Air 05/17/23 23:00 60 05/17/23 23:03 36.6 C 62 18 149/82 H 94 Room Air 05/17/23 19:22 36.7 C 58 L 18 136/79 96 Room Air Laboratory Results Abnormal lab results 05/17/23 05/17/23 05/17/23 Range/Units 07:17 14:34 15:45 Sodium 126 L 130 L 129 L (136-145) mmol/L Chloride 97 L (98-107) mmol/L BUN 28 H 28 H 31 H (6-23) mg/dl Creatinine 1.57 H 1.76 H 1.80 H (0.6-1.2) mg/dl Glucose 103 H (70-99(Fasting)) mg/dl 05/18/23 Range/Units 06:29 Sodium 135 L (136-145) mmol/L Chloride (98-107) mmol/L BUN 36 H (6-23) mg/dl Creatinine 1.80 H (0.6-1.2) mg/dl Glucose (70-99(Fasting)) mg/dl Resident Activity Tracking Resident Involvement: Resident Care Provided Care Provided: Adult [place] [facility] (2) CKD (chronic kidney disease) stage 3, GFR 30-59 ml/min Chronic kidney disease stage 3 subtype: unspecified whether 3a or 3b Qualified Code(s): N18.30 - Chronic kidney disease, stage 3 unspecified
[2023-05-18 07:07] LABS: Calcium 9.3 mg/dl (8.6-10.3); Creatinine Clr Calc Pharmacy 26.7 ml/min; Est GFR (African American) 31.1 ml/min; Est GFR (Non-African American) 26.9 ml/min; Potassium 4.6 mmol/L (3.5-5.1)
[2023-05-18] MEDS: ALPRAZolam 0.5 MG TABLET PO SCH (08:27)
[2023-05-18] MEDS: hydrALAZINE HCL 25 MG TAB PO SCH (08:27)
[2023-05-18] MEDS: SPIRONOLACTONE 25 MG TAB PO SCH (08:27)
[2023-05-18] MEDS: ATENOLOL 25 MG TABLET PO SCH (08:27)
[2023-05-18] MEDS: PANTOprazole 40 MG TAB PO SCH (08:27)
[2023-05-18] MEDS: ESCITALOPRAM OXALATE 20 MG TAB PO SCH (08:28)
[2023-05-18] MEDS: amLODIPine BESYLATE 5 MG TAB PO SCH (08:28)
[2023-05-18] MEDS: ANASTROZOLE 1 MG TAB PO SCH (08:28)
--- NOTE | 2023-05-18 12:40 | Nephrology Progress Note ---
Date of Service May 18, 2023 Assessment & Plan (1) Hyponatremia: (2) Hypertension: (3) Fatigue: Plan Hyponatremia with prior normal serum sodium, sodium was 117 and last sodium from 04/17/2023 was 138 with no prior known history of hyponatremia although we do not have record before March 2023. she was recently started on spironolactone and hydrochlorothiazide for poorly controlled hypertension, in addition to that she has been drinking more in water to keep her well-hydrated and completely avoiding salt in her diet, which could be contributing to acute hyponatremia. Sodium slightly improved to 121 after receiving 2 L of normal saline since admission last night. Urine osmolality was low at 197. No history of hypothyroidism or adrenal insufficiency, in fact there was concern for primary hyperaldosteronism but salt loading testing did not support that. She did report her blood pressure much improved after started on spironolactone. Na improved to 135 this morning. Renal function relatively stable although cr staying slightly higher than her recent baseline. --Ok to be discharged this afternoon with outpt lab monitoring, lab Sunday. Continue on amlodipine and spironolactone. -- avoid strict salt restriction, ok to keep salt intake around 2 mg/d, avoid excessive free water intake. Admission and Anticipated Discharge Date Admission Date: May 14, 2023 Joseluis Valencia was seen this am, sodium improved to 135. Overall she is feeling much better. BP well controlled. Review of Systems Review of Systems: Detailed review of system was otherwise unremarkable except mentioned above. Physical Exam Constitutional: WD/WN, vitals as above no acute distress Eyes: + anicteric sclerae Respiratory: no respiratory distress Auscultation: lungs clear to auscultation bilaterally Cardiovascular: RRR, no murmur, no edema Musculoskeletal: Extremities: extremities normal to inspection Skin: no rashes, warm and dry Neurologic: no focal motor deficits and not confused Psychiatric: Orientation: alert and oriented x 3 Affect: euthymic affect Results & Data Vital Signs (Past 12 Hours) Vital Signs Temp Pulse Pulse Resp BP Pulse Ox O2 Del Method 05/18/23 11:03 36.8 C 84 18 139/74 98 Room Air 05/18/23 07:51 36.8 C 72 20 147/77 H 97 Room Air 05/18/23 07:33 66 05/18/23 03:30 36.4 C L 58 L 18 124/69 93 Room Air PG Care Time/CCT Total # of Minutes Spent Total Time Spent with Patient: Total time spent is greater than 50% in coordination of care (as documented) at patient's floor/unit and/or counseling patient: Coding Level of Care Code 67956 SUB INP/OBS CARE 2/35MIN Diagnoses Hyponatremia E87.1 Hypertension I10 Fatigue R53.83 Fatigue type: other (3) Fatigue Fatigue type: other Qualified Code(s): R53.83 - Other fatigue
--- NOTE | 2023-05-18 17:50 | Discharge Summary ---
Date of Service May 18, 2023 Admission HPI Per Admitting Provider Annie Soto is a 77yo female with history of depression, HLP, Hypothyroid, CKD and treatment resistant HTN - suspected secondary hyperaldosteronism/primary aldosteronism. Patient has been seen by Cardiology in the past for management of her treatment resistant hypertension and has most recently been following with the [facility]. She reports compliance with her low Na diet at home. On 04/17/23 she was started on Valsartan 160mg daily as well as Spironolactone/HCTZ 25mg-25mg daily. She had been on Valsartan/HCTZ prior. Her Na level on 04/17/23 was 138. She was seen by Nephrology today 05/14/23 and had orders placed for workup of her CKD and accelerated HTN. She had a chemistry performed which revealed hyponatremia, Na of 117. Patient was contacted and instructed to come to the ER. She is complaining of generalized weakness and fatigue as well as some mild nausea but denies dizziness, imbalance, falls, seizure or other neurological complaints. Denies vomiting or diarrhea. She is urinating per usual. She has been eating well. She reports she has been compliant with her medication changes. She has been eating a low sodium diet and has been drinking an increased amount of free water - approximately 5 bottles (16oz) daily. In the ER she is mildly hypertensive at 146/75, otherwise HD stable. No additional complaints at this time. Admission Exam (Per Admitting) Constitutional General: patient resting comfortably, NAD, non-toxic in appearance, AA&O x 4, answers questions appropriately and follows commands. Skin: warm, dry, intact, no rashes or lesions HEENT: NC/AT, PERRL, EOMI, anicteric sclera, conjunctiva without injection, external ear normal to inspection and nontender, nares patent, moist mucus membranes, dentition intact, no oropharyngeal lesions, neck supple, trachea midline, no LAD, no thyromegaly, no JVD Heart: +S1/S2, regular, no m/r/g Lungs: equal air entry bilaterally, no rales/rhonchi/wheezes Abd: +BS, soft, NT/ND, no masses/organomegaly/ascites Ext: warm, 2+ pulses in UE/LE bilaterally, no clubbing/cyanosis or edema Neuro: nonfocal, patient AA&O x 4, speech intact, no facial droop, moving all extremities on command with equal strength 03/09 Discharge Data Consultations 05/14/23 20:23 ED Decision to Admit Stat 05/15/23 11:56 Consult Nephrology Routine Hospital Course (1) Hyponatremia: (2) CKD (chronic kidney disease) stage 3, GFR 30-59 ml/min: (3) Hypertension: (4) Primary aldosteronism: (5) Hypothyroidism: Silke Clifton is a 77 yo female admitted after receiving a call from nephrology for a critical sodium level. On admission she was found to have a sodium of 117. Labs were trended as below. Her creatinine was elevated throughout her stay but nephrolgy was unconcerned as normalizing her sodium was the main goal. Close follow-up with nephrology is strongly advised. #Hyponatremia Na+ 117-->119-->121-->125-->127-->123-->126-->130-->135 Resume fluid restriction, received one dose tolvaptan, continue to encourage reasonable salt intake Given picture of above stated lab values ddx includes SIADH, hypothyroidism, adrenal insufficiency, stress, pharmacologic Appreciate nephro recs: given 15mg tolvaptan, spironolactone 25mg po qD, hold lasix, hold HCTZ, avoid salt restriction #Hypothyroidism Chronic, TSH 2.79 Recheck today Continue synthroid 100mcg po daily #CKD, Stage 3 BUN, Cr mildly increased from prior. Cr 1.32-->1.57-->1.69-->1.57-->1.76-->1.8 (baseline 1.3-1.4) Renal US 05/16/23 no renal artery stenosis, no renal cysts, no hydronephrosis b/l #Hypertension BP Stable 120s-130s/60s-70s over past 24hrs Continue to monitor Continue amlodipine Continue Atenolol Continue Hydralazine Consider restarting Valsartan if BP climbs, Cr back to baseline 1.31 today Hold HCTZ #Primary Aldosteronism Follows with nephro Hx supressed renin and elevated aldosterone suggestive of primary aldosteronism However, had sodium load test which was inadequately suppressive: argues against primary aldosteronism Following addition of spironolactone home BPs have improved Restart spironolactone once Na+ level improves Supervising Physician Co-Signing Physician Notes I personally examined the patient and verified all kelley points of history and exam, discussed case, and agree with decision making and plan documented by Dr. Leung. Resident Activity Tracking Resident Involvement: Resident Care Provided Care Provided: Adult Hospital Medicine
== END 2023-05-18 13:53 | disposition home or self-care (01) | DRG 644 ==
LOC: ED 19:48 → 2S 21:11 → SUATTDRO 21:11 → 2S 21:49

== ENCOUNTER 2025-06-17 16:04 | Observation (INO) ==
--- NOTE | 2025-06-17 16:22 | Emergency Department Note ---
History of Present Illness General Chief complaint: Fall Stated complaint: FALL, HIT HEAD AND TORSO Time Seen by Provider: 06/17/25 16:11 History of Present Illness Maximum Pain Intensity: 5 This is a 79-year-old female who presents to the emergency department via private vehicle accompanied by daughter with complaints of "fall". History obtained by both patient and daughter at bedside. Daughter also has a video of the fall on her phone as it was obtained from a surveillance camera. Earlier today at 3:34 PM the patient was exiting part of the house/garage area. Patient notes that when she turns quickly she often will become temporarily dizzy causing her to fall. This is not new. She states that she turned to the side and then fell. Video shows the patient falling onto the asphalt driveway area. She landed on her right side. Patient notes that she struck the right eyebrow area, right elbow and right knee. Patient denies any loss of consciousness. In regard to the head she feels "woozy". She points to a wound to the right eyebrow area. She also notes abrasion to the right elbow and right knee. She notes tetanus vaccine is not up-to-date. No anticoagulant use. In regard to the vertiginous symptoms when she turns she notes that she has undergone physical therapy previously noting the "crystals" were out of place. She does not feel vertiginous at this time. No room spinning sensation. No preceding illness. No chest pain or shortness of breath. Patient denies any neck pain at this time. No chest pain or abdominal pain. No back pain. No weakness. No speech trouble. Home Medications Medication Instructions Recorded Confirmed Type L.acidophil-L.casei-B.bifid-B.longum-FOS 1 cap PO QAM 11/16/21 06/17/25 History 2 billion cell-50 mg capsule (Probiotic Blend) anastrozole 1 mg tablet 1 mg PO QAM 11/16/21 06/17/25 History docusate sodium 100 mg tablet 100 mg PO QPM 11/16/21 06/17/25 History (Stool Softener) omega-3 fatty acids 1 cap PO BID 11/16/21 06/17/25 History meclizine 12.5 mg tablet 12.5 mg PO TID PRN .dizzyness 04/03/23 06/17/25 History calcium carbonate (Calcium 600) 1,200 mg PO QPM 05/22/23 06/17/25 History cholecalciferol (vitamin D3) 25 1,000 unit PO UD 11/21/23 06/17/25 History mcg (1,000 unit) tablet (Vitamin D3) artificial tears(hypromellose) 0.3 1 drp ophthalmic (eye) .QHS PRN . 12/12/23 06/17/25 History % eye gel (Systane Gel) povidone (PF) 0.5 % eye drops 1 drp ophthalmic (eye) BID 12/12/23 06/17/25 History (iVizia (PF)) levothyroxine 100 mcg tablet 100 mcg PO QAM #90 tabs 09/12/24 06/17/25 Rx atorvastatin 40 mg tablet 40 mg PO QPM #90 tabs 11/10/24 06/17/25 Rx omeprazole 20 mg tablet,delayed 20 mg PO BID #180 tabs 12/22/24 06/17/25 Rx release vitamins A,C,C-xkdb-yssunz 4,296 1 cap PO BID 01/06/25 06/17/25 History mcg-226 mg-90 mg capsule (PreserVision AREDS) acyclovir 800 mg tablet 0 mg PO Q8H PRN Outbreak 01/12/25 06/17/25 History cetirizine 10 mg tablet 10 mg PO DAILY PRN allergy 02/03/25 06/17/25 Rx symptoms #30 tabs amlodipine 10 mg tablet 10 mg PO QAM 03/20/25 06/17/25 History escitalopram oxalate 20 mg tablet 20 mg PO QAM 03/20/25 06/17/25 History spironolactone 50 mg tablet 50 mg PO QAM 03/20/25 06/17/25 History valsartan 320 mg tablet 320 mg PO QAM 03/20/25 06/17/25 History buspirone 7.5 mg tablet 7.5 mg PO BID #180 tabs 05/20/25 06/17/25 Rx empagliflozin 10 mg tablet 10 mg PO QAM #30 tabs 05/29/25 06/17/25 Rx (Jardiance) alprazolam 1 mg tablet 1 mg PO TID #90 tabs 06/17/25 06/17/25 Rx fluticasone propionate 50 0 spray intranasal DAILY 06/17/25 06/17/25 History mcg/actuation nasal spray,suspension (Allergy Relief (fluticasone)) Allergies Allergy/AdvReac Type Severity Reaction Status Date / Time adhesive Allergy Intermediate severe Verified 04/07/25 13:53 itching hydrochlorothiazide Allergy Intermediate see comment Verified 04/07/25 13:53 sulfamethoxazole Allergy Mild Rash Verified 04/07/25 13:53 [From Bactrim] trimethoprim [From Bactrim] Allergy Mild Rash Verified 04/07/25 13:53 Past Med/Surg History Problem List (Updated 06/17/25 @ 18:18 by Wilman Ford PA-C) Abrasion of knee, right (Acute) Abrasion of right elbow (Acute) Abrasion of right eyebrow (Acute) Fall (Acute) Vertigo (Acute) Anxiety Recurrent falls Family history of colon cancer Dyslipidemia Anxiety and depression Primary aldosteronism Obstructive sleep apnea Proteinuria Stage 3b chronic kidney disease Herpes zoster Hyponatremia (Acute) Vitamin D deficiency Osteoarthritis Hypothyroidism Hypertension Medical History (Updated 06/17/25 @ 18:18 by Wilman Ford PA-C) Arthritis GERD (gastroesophageal reflux disease) Hypothyroidism Chronic kidney disease, stage 3 Dyslipidemia Hx of vertigo Anxiety and depression Hx of migraines Hypertension Sleep apnea cpap Scoliosis IBS (irritable bowel syndrome) History of left breast cancer diagnosed 12/2020--sx and on oral chemo Macular degeneration Post-COVID chronic dyspnea History of COVID-19 diagnosed 01/2020--difficulty breathing was admitted to [facility] and had to be on oxygen--still experiencing brain fog and dyspnea with exertion Surgical History History of carpal tunnel release (03/13/25) right>UOC Difficult airway for intubation in 2016 for hip replacement in [place] General anesthesia doc told her he had difficulty intubating her>since 2016, has had no issues with intubation History of bilateral tubal ligation History of open reduction and internal fixation (ORIF) procedure right ankle--hardware in place History of arthroscopy of left knee x2 History of right hip replacement History of left hip replacement History of esophagogastroduodenoscopy (EGD) History of cholecystectomy History of colonoscopy History of lumpectomy of left breast with lymph node removal History of left breast biopsy malignant History of oral surgery dental implants History of tooth extraction History of tonsillectomy and adenoidectomy History of bilateral cataract extraction History of cardiac cath (~2006) @ [place] [facility]--no stents Family History Brother Colorectal cancer Other No family history of adverse response to anesthesia Denies family history of Ovarian cancer Prostate cancer Myocardial infarction Breast cancer Social History Smoking Status: Never smoker Second Hand Exposure: Yes ("a long time ago"); Do You Dip or Chew Tobacco: No; Hx Alcohol Use: Yes Alcohol Intake Frequency: Never Preferred Language: Yoruba Communication Ability: Effective Visual Impairment: Partially Limited Hearing Ability: Normal Skidway Worker Required: No Beliefs That Will Affect Care: None marital status: / Current Living Situation: Family Current Living Situation Comment: with daughter "own set space" current occupational status: retired Feels Safe at Home: Yes Diet: low salt and regular caffeine: Yes Physical Activity Frequency: 1-2 Times per Week Physical Activity Frequency Comment: water aerobics. Seatbelt Use: always Do you think of yourself as: straight/heterosexual Gender Identity: Female Assistive Devices: CPAP and Glasses Review of Systems A total of 10 systems reviewed and were otherwise negative Physical Exam Vital Signs Vital Signs - 24 hr 06/17/25 16:05 06/17/25 18:06 06/17/25 18:09 Temperature 36.4 C L Temperature Source Temporal Artery Scan Pulse Rate 73 68 64 Pulse Rate from SpO2 Sensor 68 Respiratory Rate 14 15 Blood Pressure 151/83 H 148/87 H Blood Pressure Mean 105 107 Pulse Oximetry 99 96 Oxygen Delivery Method Room Air Sepsis New/Unexplained Change in Mental Status No Sepsis Action Taken by Nursing No Action Required VITAL SIGNS - Vital signs and nursing notes were reviewed. Hypertensive, otherwise stable and afebrile. GENERAL -79-year-old female appearing her stated age. Communicates well with provider and answers questions appropriately. SKIN - Gross examination of the entire body surface demonstrates 2 small subcentimeter abrasions to the right eyebrow region that will not require repair. There are contusions/abrasions noted to the posterior right elbow, anterior right knee. HEAD - Normocephalic. No Arvizu's Sign or Raccoon's Eyes. No depressed skull fractures palpable. EYES - PERRL with EOMI bilaterally. Without subconjunctival hemorrhage. Palpebral conjunctiva pink and moist with no injection. EARS - No deformities of external structures noted on gross examination bilaterally. No hemotympanum present. No tympanic perforation noted. Handle of malleus, umbo, cone of light, pars tensa/flaccid all easily visualized. NOSE - Midline and without cyanosis. No epistaxis or clear watery discharge noted. Septum midline without deviation. No septal hematoma noted. No overlying ecchymosis noted. MOUTH/OROPHARYNX - Without perioral cyanosis. Tongue midline with equal elevation of palate bilaterally. No blood noted in the oropharynx. No tonsillar hypertrophy, erythema, or exudates noted. No dental fractures noted. NECK -no tenderness to palpation over the cervical spinous processes. No cervical paraspinal muscle tenderness noted. LUNGS - Chest wall symmetric without accessory muscle use, intercostals retractions, or central cyanosis. No flail chest or depressed fractures noted. No paradoxical chest wall movements noted. No tenderness to palpation across the anterior and posterior chest lozano. No tenderness with deep inspiration noted against the examiner's applied pressure to the lateral chest lozano. Normal vesicular breath sounds CTA B/L. No wheezes, rales, or rhonchi appreciated. CARDIAC - RRR ABDOMEN - Abdominal contour normal and without pulsations or visible masses. BS normoactive all four quadrants. No rebound tenderness or guarding noted. Negative Brethren's or Corcoran Abarca's Signs. No tenderness, palpable masses, hepatosplenomegaly, or ascites noted. EXTREMITIES - No gross deformities noted of the extremities. Minimal tenderness to palpation right posterior lateral elbow and right anterior knee. Otherwise extremities are nontender. There is no laceration to the extremities. +5/5 strength noted in UE/LE bilaterally. NEUROLOGIC - Cranial nerves II through XII grossly intact. PSYCH -alert, oriented and pleasant on exam Course Administered Medications Discontinued Medications Diphtheria/Pertussis/Tetanus Vacc (Diphther/Tetan/Pertus Vaccine (Tdap, Adol/Adult) 0.5ml) 0.5 ml IM .ONCE ONE Stop: 06/17/25 16:24 Last Admin: 06/17/25 16:33 Dose: 0.5 ml Documented By: [facility] [place] Medical Decision Making Laboratory Data 06/17/25 16:29 06/17/25 16:29 Lab Results 06/17/25 06/17/25 Range/Units 16:29 17:28 WBC 8.51 (4.8-10.8) K/ul RBC 4.04 L (4.20-5.40) M/uL Hgb 12.6 (12.0-16.0) g/dl Hct 35.7 L (37.0-47.0) % MCV 88.4 (80.0-100.0) fL MCH 31.2 (25.0-34.0) pg MCHC 35.3 (32.0-36.0) g/dL RDW Std Deviation 38.6 (36.4-46.3) fL RDW Coeff of Sachin 11.9 (11.5-14.5) % Plt Count 244 (130-400) K/uL MPV 8.7 L (9.4-12.4) fL Immature Gran % (Auto) 1.1 % Neut % (Auto) 65.7 % Lymph % (Auto) 23.5 % [place] % (Auto) 6.7 % Eos % (Auto) 2.5 % Baso % (Auto) 0.5 % Neut # (Auto) 5.60 (1.40-6.50) K/uL Lymph # (Auto) 2.00 (1.20-3.40) K/uL [place] # (Auto) 0.57 (0.11-0.59) K/uL Eos # (Auto) 0.21 (0.00-0.50) K/uL Baso # (Auto) 0.04 (0.00-0.20) K/uL Immature Gran # (Auto) 0.09 (0.01-0.20) K/uL Sodium 128 L (136-145) mmol/L Potassium 4.8 (3.5-5.1) mmol/L Chloride 98 (98-107) mmol/L Carbon Dioxide 22 (21-32) mmol/L Anion Gap 8 (3-11) BUN 41 H (6-23) mg/dl Creatinine 1.85 H (0.6-1.2) mg/dl Est Cr Clr Drug Dosing Not Reportable eGFR 27.56 BUN/Creatinine Ratio 22.2 H (10-20) Glucose 127 H (70-99(Fasting)) mg/dl Osmolality 280 (280-300) mOsm/kg Calcium 9.3 (8.6-10.3) mg/dl Total Bilirubin 0.4 (0.2-1.0) mg/dl AST 15 (13-39) U/L ALT 12 (7-52) U/L Alkaline Phosphatase 105 H (34-104) U/L Total Protein 6.9 (6.0-8.3) gm/dl Albumin 4.1 (3.4-5.0) gm/dl Globulin 2.8 (2.5-4.0) gm/dl Albumin/Globulin Ratio 1.5 (0.9-2) Urine Color Yellow Urine Appearance Clear (Clear) Urine pH 6.0 (4.5-7.5) Ur Specific Isabel[place] 1.007 (1.000-1.030) Urine Protein Negative (Negative) Urine Glucose (UA) 1+ H (Negative) Urine Ketones Negative (Negative) Urine Blood Negative (Negative) Urine Nitrite Negative (Negative) Urine Bilirubin Negative (Negative) Urine Urobilinogen Negative (Negative) Ur Leukocyte Esterase Trace H (Negative) Urine WBC (Auto) 0-5 (0-5) /hpf Urine RBC (Auto) 0-2 (0-2) /hpf U Hyaline Cast (Auto) 0-2 (0-2) /lpf U Epithel Cells (Auto) 0-2 (0-2) /hpf Urine Bacteria (Auto) None Seen (None Seen) Urine Osmolality 209 L (500-800) mOsm/kg Urine Comment Imaging Data Radiologist's Impression: Ankle X-Ray 06/17/25 16:23 Clinical History: Fall 3 views of the right elbow are submitted for review. Findings: There is internal fixation of the medial malleolus with 2 fixation screws. There is internal fixation of the distal fibular shaft and lateral malleolus with a fixation plate and screws. A fixation screw extending from the distal fibular metadiaphysis into the distal tibial metaphysis is fractured. No definite acute fracture is seen No subluxation or dislocation is seen. No significant arthritic changes are noted. No other osseous abnormality is identified. There are no radiopaque foreign bodies. Impression: Internal fixation of the medial malleolus and distal fibula. 1 of the metallic screws is fractured. Comparison with prior studies would be useful Electronically signed by Calos Mccarty 06-17-2025 5:[address] 06/17/25 16:23 Clinical history: Fall Technique: Axial computed tomography images were obtained of the cervical spine without intravenous contrast. Sagittal and coronal reconstructions were obtained Findings: No fracture is identified. No listhesis is seen. No focal osseous lesion is evident. There is atlantoaxial osteoarthritis. At C2-3, no disc herniation is identified. There is no spinal stenosis. The neural foramen are patent At C3-4, there is a mild disc bulge. There is no spinal stenosis. The neural foramen are patent At C4-5, there is a mild disc bulge without spinal stenosis. There is mild right neural foramen narrowing At C5-6, there is a mild disc bulge without spinal stenosis. There is mild right neural foramen narrowing At C6-7, there is a mild disc bulge. There is no spinal stenosis. The neural foramen are patent At C7-T1, no disc herniation is identified. There is no spinal stenosis. The neural foramen are patent The lung apices appear clear. The visualized soft tissues of the neck appear unremarkable. There is mucosal thickening in the right maxillary sinus. No foreign body is seen Impression: 1. No definite cervical spine fracture 2. Cervical disc bulges without spinal stenosis or definite nerve root compression Electronically signed by Calos Mccarty 06-17-2025 5:13 PM Chest X-Ray 06/17/25 16:23 Clinical History: Fall Technique: A frontal view of the chest was obtained Findings: There are no confluent pulmonary infiltrates. The heart size is at the upper limit of normal. No pleural effusion or pneumothorax is seen. There is right lung base atelectasis No fracture is noted. There is prominent scoliosis Impression: Right lung base atelectasis Electronically signed by Calos Mccarty 06-17-2025 5:19 PM Elbow X-Ray 06/17/25 16:23 Clinical History: Fall 3 views of the right elbow are submitted for review. Findings: No fracture or dislocation is seen. No significant arthritic changes are noted. No other osseous abnormality is identified. There are no radiopaque foreign bodies. Impression: Unremarkable radiographs of the right elbow Electronically signed by Calos Mccarty 06-17-2025 5:[address] 06/17/25 16:23 Clinical History: Injury Technique: Axial computed tomography images were obtained of the brain without intravenous contrast. Findings: There is diffuse cerebral atrophy, within expected limits for the patient's age. Areas of decreased attenuation are seen within the periventricular white matter, likely representing chronic small vessel ischemic disease. There is no definite sign of acute or old infarction. No intracranial hemorrhage is evident. No definite mass lesion is seen on this noncontrast examination. There is no midline shift or other form of herniation. No hydrocephalus is seen. No fracture is identified. The orbits and the visualized paranasal sinuses appear unremarkable. The mastoid air cells appear clear. Impression: 1. Cerebral atrophy and chronic small vessel ischemic disease 2. Otherwise unremarkable noncontrast CT of the brain Electronically signed by Calos Mccarty 06-17-2025 5:02 PM Knee X-Ray 06/17/25 16:23 Clinical History: Fall 3 views of the right knee are submitted for review. Findings: No fracture or dislocation is seen. There is mild joint space narrowing in the medial compartment. There are small osteophytes in all 3 compartments. No other osseous abnormality is identified. There are no radiopaque foreign bodies. Vascular calcifications are present Impression: Mild osteoarthritis Electronically signed by Calos Mccarty 06-17-2025 5:20 PM Tibia/Fibula X-Ray 06/17/25 16:23 Clinical History: Fall 2 views of the right lower leg are submitted for review. Findings: There is internal fixation of the medial malleolus with 2 fixation screws. There is internal fixation of the distal fibular shaft and lateral malleolus with a fixation plate and screws. A fixation screw extending from the distal fibular metadiaphysis into the distal tibial metaphysis is fractured. No definite acute fracture is seen. No subluxation or dislocation is seen. There is mild right knee osteoarthritis. No other osseous abnormality is identified. There are no radiopaque foreign bodies. Impression: Internal fixation of the medial malleolus and distal fibula. One of the metallic screws is fractured. Comparison with prior studies would be useful Electronically signed by Calos Mccarty 06-17-2025 5:17 PM Shoulder X-Ray 06/17/25 16:54 Clinical History: Fall 3 views of the right shoulder are submitted for review. Findings: No fracture or dislocation is seen. There is mild to moderate severity acromioclavicular and glenohumeral osteoarthritis. No other osseous abnormality is identified. There are no radiopaque foreign bodies. There is calcific tendinitis of the rotator cuff Impression: 1. No definite fracture 2. Osteoarthritis 3. Calcific tendinitis of the rotator cuff Electronically signed by Calos Mccarty 06-17-2025 5:19 PM MDM Narrative Patient was seen and evaluated as above in room D03a. Review was performed of nursing notes and vital signs. I did review pertinent previous visits and patient history. After obtaining a thorough history and physical examination the above work up was performed. Patient presents to us today status post fall landing on her right side. She fell over a small lip. No steps. No loss of consciousness. Please see HPI and PE for full details. I did elect to obtain CT imaging of the head and C-spine. I also ordered x-rays of the chest, right elbow, right knee/right lower extremity areas. I did order tetanus vaccine for the patient after reviewing benefit versus risk with the patient and daughter at bedside. It appears the patient is out of date for her tetanus vaccine. She does have abrasions today. I did like to obtain CBC and CMP for this patient. Per review of visit dated 05/14/2023 patient at that time noted to have a sodium around 117. 1653patient told x-ray human resources technician that she was having right shoulder pain during positioning for the right elbow x-rays. I did reevaluate the patient. She was tender in the right anterior shoulder joint. I did add on additional x- rays of the right shoulder to further assess. Verbal consent was obtained and I cleansed the right eyebrow region, right elbow and right knee with sterile saline and dried the area with sterile gauze. Bacitracin was applied followed by dressings to the elbow and knee. Bacitracin without bandage was applied to the right eyebrow area. Imaging findings are as above. The screw/hardware fracture in the ankle is not new per patient. She notes that it is an old finding. She is not tender at that area. Hyponatremia noted at 128. CKD evidence noted. I reviewed all findings with patient and daughter at bedside. Patient does not feel safe going home. I do believe that further evaluation and management inpatient setting is warranted. Case discussed with the hospitalist service. Please refer to further documentation regarding her stay. GCS: 15 In the evaluation and treatment of this patient the following differential diagnoses were entertained: Intracranial hemorrhage, concussion, skull fracture, hyponatremia, fracture, dislocation, subluxation, contusion, among others. Impression & Plan Hyponatremia, Vertigo, Fall, Abrasion of right eyebrow, Abrasion of right elbow, Abrasion of knee, right Discharge Plan Visit Data Chief Complaint: Fall Stated Complaint: FALL, HIT HEAD AND TORSO ED Provider: Geoff Chen ED Midlevel Provider: Wilman Ford Discharge Problem: Hyponatremia, Vertigo, Fall, Abrasion of right eyebrow, Abrasion of right elbow, Abrasion of knee, right Patient Disposition: Admitted As Inpatient Condition: Good Forms Stand Alone Forms: My [employer] Prescriptions Prescriptions: No Action levothyroxine 100 mcg tablet 100 mcg PO QAM Qty: 90 3RF atorvastatin 40 mg tablet 40 mg PO QPM Qty: 90 3RF omeprazole 20 mg tablet,delayed release (DR/EC) 20 mg PO BID Qty: 180 1RF buspirone 7.5 mg tablet 7.5 mg PO BID Qty: 180 1RF Jardiance 10 mg tablet 10 mg PO QAM Qty: 30 4RF alprazolam 1 mg tablet 1 mg PO TID Qty: 90 0RF iVizia (PF) 0.5 % drops 1 drp ophthalmic (eye) BID Patient Comments: 06/17- otc unable to verify Systane Gel 0.3 % gel 1 drp ophthalmic (eye) .QHS PRN (Reason: .) Patient Comments: 06/17- otc unable to verify meclizine 12.5 mg tablet 12.5 mg PO TID PRN (Reason: .dizzyness) Patient Comments: 06/17- otc unable to verify cetirizine 10 mg tablet 10 mg PO DAILY PRN (Reason: allergy symptoms) Qty: 30 0RF Patient Comments: 06/17-last filled 02/03 30 day supply PreserVision AREDS 4,296 mcg-226 mg-90 mg capsule 1 cap PO BID Patient Comments: 06/17- otc unable to verify acyclovir 800 mg tablet 0 mg PO Q8H PRN (Reason: Outbreak) Patient Comments: 06/17- last filled 07/23/24 7 day supply Rx Instructions: as needed for outbreak anastrozole 1 mg Tablet 1 mg PO QAM docusate sodium [Stool Softener] 100 mg Tablet 100 mg PO QPM Patient Comments: 06/17- otc unable to verify omega-3 fatty acids Capsule 1 cap PO BID Patient Comments: 06/17- otc unable to verify Probiotic Blend 2 billion cell-50 mg Capsule 1 cap PO QAM Patient Comments: 06/17- otc unable to verify calcium carbonate [Calcium 600] 600 mg calcium (1,500 mg) tablet 1,200 mg PO QPM Patient Comments: 06/17- otc unable to verify cholecalciferol (vitamin D3) [Vitamin D3] 25 mcg (1,000 unit) tablet 1,000 unit PO UD Patient Comments: 06/17- otc unable to verify amlodipine 10 mg tablet 10 mg PO QAM Rx Instructions: 30 day supply while traveling valsartan 320 mg tablet 320 mg PO QAM spironolactone 50 mg tablet 50 mg PO QAM Rx Instructions: 30 day supply while traveling . escitalopram oxalate 20 mg tablet 20 mg PO QAM fluticasone propionate [Allergy Relief (fluticasone)] 50 mcg/actuation spray,suspension 0 spray intranasal DAILY Patient Comments: 06/17- last filled 02/03 30 day supply Rx Instructions: administer into each nostril Referrals Referrals: Natalie Martell MD [Primary Care Provider] -
[2025-06-17] MEDS: DIPHTHER/TETAN/PERTUS Vaccine (Tdap, Adol/Adult) 0.5mL IM ONE (16:33)
[2025-06-17 16:49] LABS: Hematocrit (blood only) 35.7 % (37.0-47.0); Hemoglobin 12.6 g/dl (12.0-16.0); Immature Granulocytes # (auto) 0.09 K/uL (0.01-0.20); Immature Granulocytes % (auto) 1.1 %; Mean Corpuscular Hemoglobin 31.2 pg (25.0-34.0); Mean Corpuscular Volume 88.4 fL (80.0-100.0); Platelet Count 244 K/uL (130-400); RDW Standard Deviation 38.6 fL (36.4-46.3); Red Blood Count 4.04 M/uL (4.20-5.40); White Blood Count 8.51 K/ul (4.8-10.8)
[2025-06-17 16:58] LABS: Alanine Aminotransferase 12 U/L (7-52); Albumin Globulin Ratio 1.5 (0.9-2); Alkaline Phosphatase 105 U/L (34-104); Anion Gap 8 (3-11); Bilirubin,Total 0.4 mg/dl (0.2-1.0); Blood Urea Nitrogen 41 mg/dl (6-23); Calcium 9.3 mg/dl (8.6-10.3); Carbon Dioxide 22 mmol/L (21-32); Chloride 98 mmol/L (98-107); Globulin 2.8 gm/dl (2.5-4.0); Glucose 127 mg/dl (70-99(Fasting)); Potassium 4.8 mmol/L (3.5-5.1); Sodium 128 mmol/L (136-145); Total Protein 6.9 gm/dl (6.0-8.3)
--- NOTE | 2025-06-17 17:03 | CT Scan Report ---
Clinical History: Injury Technique: Axial computed tomography images were obtained of the brain without intravenous contrast. Findings: There is diffuse cerebral atrophy, within expected limits for the patient's age. Areas of decreased attenuation are seen within the periventricular white matter, likely representing chronic small vessel ischemic disease. There is no definite sign of acute or old infarction. No intracranial hemorrhage is evident. No definite mass lesion is seen on this noncontrast examination. There is no midline shift or other form of herniation. No hydrocephalus is seen. No fracture is identified. The orbits and the visualized paranasal sinuses appear unremarkable. The mastoid air cells appear clear. Impression: 1. Cerebral atrophy and chronic small vessel ischemic disease 2. Otherwise unremarkable noncontrast CT of the brain Electronically signed by Calos Mccarty 06-17-2025 5:02 PM
--- NOTE | 2025-06-17 17:08 | Emergency Department Note ---
ED Visit Note I was consulted by the Advanced Practice Provider Wilman Ford PA-C. I performed a substantive portion of the visit including all aspects of medical decision making. .
--- NOTE | 2025-06-17 17:13 | CT Scan Report ---
Clinical history: Fall Technique: Axial computed tomography images were obtained of the cervical spine without intravenous contrast. Sagittal and coronal reconstructions were obtained Findings: No fracture is identified. No listhesis is seen. No focal osseous lesion is evident. There is atlantoaxial osteoarthritis. At C2-3, no disc herniation is identified. There is no spinal stenosis. The neural foramen are patent At C3-4, there is a mild disc bulge. There is no spinal stenosis. The neural foramen are patent At C4-5, there is a mild disc bulge without spinal stenosis. There is mild right neural foramen narrowing At C5-6, there is a mild disc bulge without spinal stenosis. There is mild right neural foramen narrowing At C6-7, there is a mild disc bulge. There is no spinal stenosis. The neural foramen are patent At C7-T1, no disc herniation is identified. There is no spinal stenosis. The neural foramen are patent The lung apices appear clear. The visualized soft tissues of the neck appear unremarkable. There is mucosal thickening in the right maxillary sinus. No foreign body is seen Impression: 1. No definite cervical spine fracture 2. Cervical disc bulges without spinal stenosis or definite nerve root compression Electronically signed by Calos Mccarty 06-17-2025 5:13 PM
--- NOTE | 2025-06-17 17:15 | XRay Report ---
Clinical History: Fall 3 views of the right elbow are submitted for review. Findings: No fracture or dislocation is seen. No significant arthritic changes are noted. No other osseous abnormality is identified. There are no radiopaque foreign bodies. Impression: Unremarkable radiographs of the right elbow Electronically signed by Calos Mccarty 06-17-2025 5:15 PM
--- NOTE | 2025-06-17 17:17 | XRay Report ---
Clinical History: Fall 3 views of the right elbow are submitted for review. Findings: There is internal fixation of the medial malleolus with 2 fixation screws. There is internal fixation of the distal fibular shaft and lateral malleolus with a fixation plate and screws. A fixation screw extending from the distal fibular metadiaphysis into the distal tibial metaphysis is fractured. No definite acute fracture is seen No subluxation or dislocation is seen. No significant arthritic changes are noted. No other osseous abnormality is identified. There are no radiopaque foreign bodies. Impression: Internal fixation of the medial malleolus and distal fibula. 1 of the metallic screws is fractured. Comparison with prior studies would be useful Electronically signed by Calos Mccarty 06-17-2025 5:16 PM
--- NOTE | 2025-06-17 17:18 | XRay Report ---
Clinical History: Fall 2 views of the right lower leg are submitted for review. Findings: There is internal fixation of the medial malleolus with 2 fixation screws. There is internal fixation of the distal fibular shaft and lateral malleolus with a fixation plate and screws. A fixation screw extending from the distal fibular metadiaphysis into the distal tibial metaphysis is fractured. No definite acute fracture is seen. No subluxation or dislocation is seen. There is mild right knee osteoarthritis. No other osseous abnormality is identified. There are no radiopaque foreign bodies. Impression: Internal fixation of the medial malleolus and distal fibula. One of the metallic screws is fractured. Comparison with prior studies would be useful Electronically signed by Calos Mccarty 06-17-2025 5:17 PM
--- NOTE | 2025-06-17 17:19 | XRay Report ---
Clinical History: Fall 3 views of the right shoulder are submitted for review. Findings: No fracture or dislocation is seen. There is mild to moderate severity acromioclavicular and glenohumeral osteoarthritis. No other osseous abnormality is identified. There are no radiopaque foreign bodies. There is calcific tendinitis of the rotator cuff Impression: 1. No definite fracture 2. Osteoarthritis 3. Calcific tendinitis of the rotator cuff Electronically signed by Calos Mccarty 06-17-2025 5:19 PM
--- NOTE | 2025-06-17 17:20 | XRay Report ---
Clinical History: Fall Technique: A frontal view of the chest was obtained Findings: There are no confluent pulmonary infiltrates. The heart size is at the upper limit of normal. No pleural effusion or pneumothorax is seen. There is right lung base atelectasis No fracture is noted. There is prominent scoliosis Impression: Right lung base atelectasis Electronically signed by Calos Mccarty 06-17-2025 5:19 PM
--- NOTE | 2025-06-17 17:21 | XRay Report ---
Clinical History: Fall 3 views of the right knee are submitted for review. Findings: No fracture or dislocation is seen. There is mild joint space narrowing in the medial compartment. There are small osteophytes in all 3 compartments. No other osseous abnormality is identified. There are no radiopaque foreign bodies. Vascular calcifications are present Impression: Mild osteoarthritis Electronically signed by Calos Mccarty 06-17-2025 5:20 PM
--- NOTE | 2025-06-17 17:34 | History & Physical Report ---
Date of Service June 17, 2025 Assessment & Plan (1) Recurrent falls: (2) Anxiety: (3) Vertigo: (4) Hyponatremia: Plan This patient is a 79-year-old female with PMH of vertigo and recurrent falls, who presented on 06/17 after sustaining a fall at home onto her driveway. #Recurrent fall Imaging on arrival was as follows: Right shoulder without acute fracture, but did reveal calcific tendinitis of the rotator cuff Right tib/fib revealed fracture of one of the metallic screws in her medial malleolus and distal fibula However, patient reports at bedside that this was known to her ahead of time, and there has been a problem with the screw for a while Right elbow x-ray unremarkable Head/cervical spine CTs without acute findings Orthostatic vitals ordered, pending Patient declined pain medication on admission Acetaminophen PRN for pain PT/OT evaluations appreciated Fall precautions #Potential concussion; mild Noted; (+) Vertical/horizontal saccades with rotary nystagmus on exam Clinically, patient denies photophobia, but does endorse headache #Vertigo Patient reports that her head feels like it is "spinning" whenever she stands up Meclizine 15 mg p.o. PRN #Anxiety | depression Patient is currently on alprazolam 1 mg p.o. TID Suspect this may be contributing to falls Discussed with both patient and patient's daughter at bedside Recommend weaning off gradually or decreasing to twice daily or HS as an outpatient Continue BuSpar BID Continue escitalopram #Hyponatremia Na 128 on arrival; chronic, but lower than baseline Urine Osm, Urine sodium, and serum osm ordered, pending Trend BMP #Stage IIIb CKD Avoid nephrotoxic agents for possible Creatinine around baseline at 1.85 on arrival #History of left breast cancer Left upper extremity no BP, labs, blood draws Continue anastrozole #HTN | primary aldosteronism Continue amlodipine, valsartan, and spironolactone K WNL on arrival #GERD Continue PPI #Hypothyroidism Continue levothyroxine #HLD Continue atorvastatin Disposition: Obs - admit to Medsurg PT PPx: Hold chemical DVT PPx in the setting of acute head trauma; teds History of Present Illness Chief Complaint: Fall Primary Care Provider: Natalie Martell MD Mrs. Clifton is a 79-year-old female with PMH of anxiety, depression, dyslipidemia, primary aldosteronism, MAGGIE, and HTN. She presented on 06/17 after she fell down a step while going outside. She landed hard on her right side on the asphalt in her driveway. No LOC. Positive head strike. No blood thinners. While patient reports that she "lost her footing" she did not report that she turned her head after closing the door and felt dizzy. She shuffled off of the lip with the door falling on the right side and striking her right eyebrow. Patient does have history of vertigo, and has been feeling vertiginous as of late; mainly when she lies down at night; dizziness at rest. She does have meclizine, but has not been using it (as she is never sure when she should take it). She has had an Cintia maneuver performed in the past, which did help with her vertigo for a small amount of time. Patient lives with her daughter. She denies prior history of concussions. She does have a history of recent fall approximately 1 month ago, that occurred in a similar fashion. Today, she was unable to get up off the ground on her own. She does have a cane at home, but does not ambulate with it. Patient took her regular morning medicines today. Only recent change in medications is that she was started on Jardiance 2 to 3 months ago. Patient manages her own medicine at home. No sick contacts. No tinnitus. No change in her vision. She denies smoking, tobacco use, recent alcohol use. Patient declines pain medication on admission. When asked if patient would feel safe returning home tonight, she reports she would not feel safe returning home, as she lives with her daughter, however her daughter will be unavailable tomorrow due to her granddaughter's Lisfranc surgery. Patient is mildly hypertensive at 151/83 at time of admission; vitals otherwise stable. ED course: Tdap IM x 1 ROS: Patient endorses headache, right shoulder pain, and dizziness that regular occurs with sudden motions, but can also occur at rest when she lays her head the wrong way. Patient denies fever, night sweats, changes in vision, tinnitus, chest pain, shortness of breath, cough, abdominal pain, N/V/D, or changes in urinary/bowel habits. Allergies Allergy/AdvReac Type Severity Reaction Status Date / Time adhesive Allergy Intermediate severe Verified 04/07/25 13:53 itching hydrochlorothiazide Allergy Intermediate see comment Verified 04/07/25 13:53 sulfamethoxazole Allergy Mild Rash Verified 04/07/25 13:53 [From Bactrim] trimethoprim [From Bactrim] Allergy Mild Rash Verified 04/07/25 13:53 Home Medications Medication Instructions Recorded Confirmed Type L.acidophil-L.casei-B.bifid-B.longum-FOS 1 cap PO QAM 11/16/21 06/17/25 History 2 billion cell-50 mg capsule (Probiotic Blend) anastrozole 1 mg tablet 1 mg PO QAM 11/16/21 06/17/25 History docusate sodium 100 mg tablet 100 mg PO QPM 11/16/21 06/17/25 History (Stool Softener) omega-3 fatty acids 1 cap PO BID 11/16/21 06/17/25 History meclizine 12.5 mg tablet 12.5 mg PO TID PRN .dizzyness 04/03/23 06/17/25 History calcium carbonate (Calcium 600) 1,200 mg PO QPM 05/22/23 06/17/25 History cholecalciferol (vitamin D3) 25 1,000 unit PO UD 11/21/23 06/17/25 History mcg (1,000 unit) tablet (Vitamin D3) artificial tears(hypromellose) 0.3 1 drp ophthalmic (eye) .QHS PRN . 12/12/23 06/17/25 History % eye gel (Systane Gel) povidone (PF) 0.5 % eye drops 1 drp ophthalmic (eye) BID 12/12/23 06/17/25 History (iVizia (PF)) levothyroxine 100 mcg tablet 100 mcg PO QAM #90 tabs 09/12/24 06/17/25 Rx atorvastatin 40 mg tablet 40 mg PO QPM #90 tabs 11/10/24 06/17/25 Rx omeprazole 20 mg tablet,delayed 20 mg PO BID #180 tabs 12/22/24 06/17/25 Rx release vitamins A,C,X-ignn-sqiuig 4,296 1 cap PO BID 01/06/25 06/17/25 History mcg-226 mg-90 mg capsule (PreserVision AREDS) acyclovir 800 mg tablet 0 mg PO Q8H PRN Outbreak 01/12/25 06/17/25 History cetirizine 10 mg tablet 10 mg PO DAILY PRN allergy 02/03/25 06/17/25 Rx symptoms #30 tabs amlodipine 10 mg tablet 10 mg PO QAM 03/20/25 06/17/25 History escitalopram oxalate 20 mg tablet 20 mg PO QAM 03/20/25 06/17/25 History spironolactone 50 mg tablet 50 mg PO QAM 03/20/25 06/17/25 History valsartan 320 mg tablet 320 mg PO QAM 03/20/25 06/17/25 History buspirone 7.5 mg tablet 7.5 mg PO BID #180 tabs 05/20/25 06/17/25 Rx empagliflozin 10 mg tablet 10 mg PO QAM #30 tabs 05/29/25 06/17/25 Rx (Jardiance) alprazolam 1 mg tablet 1 mg PO TID #90 tabs 06/17/25 06/17/25 Rx fluticasone propionate 50 0 spray intranasal DAILY 06/17/25 06/17/25 History mcg/actuation nasal spray,suspension (Allergy Relief (fluticasone)) Past Med/Surg History Problem List (Updated 06/17/25 @ 18:18 by Wilman Ford PA-C) Abrasion of knee, right (Acute) Abrasion of right elbow (Acute) Abrasion of right eyebrow (Acute) Fall (Acute) Vertigo (Acute) Anxiety Recurrent falls Family history of colon cancer Dyslipidemia Anxiety and depression Primary aldosteronism Obstructive sleep apnea Proteinuria Stage 3b chronic kidney disease Herpes zoster Hyponatremia (Acute) Vitamin D deficiency Osteoarthritis Hypothyroidism Hypertension Medical History (Updated 06/17/25 @ 18:18 by Wilman Ford PA-C) Arthritis GERD (gastroesophageal reflux disease) Hypothyroidism Chronic kidney disease, stage 3 Dyslipidemia Hx of vertigo Anxiety and depression Hx of migraines Hypertension Sleep apnea cpap Scoliosis IBS (irritable bowel syndrome) History of left breast cancer diagnosed 12/2020--sx and on oral chemo Macular degeneration Post-COVID chronic dyspnea History of COVID-19 diagnosed 01/2020--difficulty breathing was admitted to [facility] and had to be on oxygen--still experiencing brain fog and dyspnea with exertion Surgical History History of carpal tunnel release (03/13/25) right>UOC Difficult airway for intubation in 2016 for hip replacement in [facility] anesthesia doc told her he had difficulty intubating her>since 2016, has had no issues with intubation History of bilateral tubal ligation History of open reduction and internal fixation (ORIF) procedure right ankle--hardware in place History of arthroscopy of left knee x2 History of right hip replacement History of left hip replacement History of esophagogastroduodenoscopy (EGD) History of cholecystectomy History of colonoscopy History of lumpectomy of left breast with lymph node removal History of left breast biopsy malignant History of oral surgery dental implants History of tooth extraction History of tonsillectomy and adenoidectomy History of bilateral cataract extraction History of cardiac cath (~2006) @ [facility]--no stents Family History Brother Colorectal cancer Other No family history of adverse response to anesthesia Denies family history of Ovarian cancer Prostate cancer Myocardial infarction Breast cancer Social History Smoking Status: Never smoker Second Hand Exposure: Yes ("a long time ago"); Do You Dip or Chew Tobacco: No; Hx Alcohol Use: Yes Alcohol Intake Frequency: Never Preferred Language: Tajik Communication Ability: Effective Visual Impairment: Partially Limited Hearing Ability: Normal 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 Seatbelt Use: always Do you think of yourself as: straight/heterosexual Gender Identity: Female Assistive Devices: CPAP and Glasses Review of Systems Review of Systems: See HPI above Physical Exam Physical Exam: General: no acute distress; daughter at bedside; pleasant affect; non-toxic appearing; well-nourished; cooperative; SpO2 99% on RA HEENT: Superficial bruise/laceration noted on the lateral right eyebrow, approximately 0.5 inches; no scleral icterus; PERRLA w/ EOMs intact; patient does exhibit positive vertical and horizontal saccades with rotary nystagmus jovany reciated following attempt; vision appears intact; hard of hearing; TMs pearly burton b/l, canal are non-erythematous Neck: supple; trachea midline Right shoulder: Mildly TTP; no bruising appreciated Skin: warm, dry without signs of tenting; no cyanosis; no rashes, bruising, lesions, or erythema noted CV: chest wall NTP; RRR; S1/S2 normal; no murmurs/rubs/gallops; pulses intact and symmetric at radial, DP, and PT Lungs: no acute respiratory distress; symmetrical chest wall expansion; clear breath sounds across all lung reyes w/o adventitious sounds; no wheezing ABD: Soft, NTP; BS present; no rebound/guarding; no distention MSK: no tics or fasciculations; no edema noted in the LEs b/l, nonerythematous; patient demonstrates to ability to wiggle toes bilaterally, and lift legs off the bed against resistance with 4/5 strength bilaterally Neuro: A&Ox3; normal mood and affect; fluent speech; no focal deficits; patient reports sensation is intact and symmetric in the lower extremities bilaterally Gait: patient exhibits mild postural sway, but is steady on her feet traveling to bathroom; does report "head spinning" immediately after standing Results & Data Results & Data Vital Signs (Past 12 Hours) Vital Signs Temp Pulse Resp BP Pulse Ox O2 Del Method 06/17/25 16:05 36.4 C L 73 14 151/83 H 99 Room Air Laboratory Results Abnormal lab results 06/17/25 Range/Units 16:29 RBC 4.04 L (4.20-5.40) M/uL Hct 35.7 L (37.0-47.0) % MPV 8.7 L (9.4-12.4) fL Sodium 128 L (136-145) mmol/L BUN 41 H (6-23) mg/dl Creatinine 1.85 H (0.6-1.2) mg/dl BUN/Creatinine Ratio 22.2 H (10-20) Glucose 127 H (70-99(Fasting)) mg/dl Alkaline Phosphatase 105 H (34-104) U/L Diagnostic Findings Ankle X-Ray 06/17/25 16:23 Clinical History: Fall 3 views of the right elbow are submitted for review. Findings: There is internal fixation of the medial malleolus with 2 fixation screws. There is internal fixation of the distal fibular shaft and lateral malleolus with a fixation plate and screws. A fixation screw extending from the distal fibular metadiaphysis into the distal tibial metaphysis is fractured. No definite acute fracture is seen No subluxation or dislocation is seen. No significant arthritic changes are noted. No other osseous abnormality is identified. There are no radiopaque foreign bodies. Impression: Internal fixation of the medial malleolus and distal fibula. 1 of the metallic screws is fractured. Comparison with prior studies would be useful Electronically signed by Calos Mccarty 06-17-2025 5:[address] 06/17/25 16:23 Clinical history: Fall Technique: Axial computed tomography images were obtained of the cervical spine without intravenous contrast. Sagittal and coronal reconstructions were obtained Findings: No fracture is identified. No listhesis is seen. No focal osseous lesion is evident. There is atlantoaxial osteoarthritis. At C2-3, no disc herniation is identified. There is no spinal stenosis. The neural foramen are patent At C3-4, there is a mild disc bulge. There is no spinal stenosis. The neural foramen are patent At C4-5, there is a mild disc bulge without spinal stenosis. There is mild right neural foramen narrowing At C5-6, there is a mild disc bulge without spinal stenosis. There is mild right neural foramen narrowing At C6-7, there is a mild disc bulge. There is no spinal stenosis. The neural foramen are patent At C7-T1, no disc herniation is identified. There is no spinal stenosis. The neural foramen are patent The lung apices appear clear. The visualized soft tissues of the neck appear unremarkable. There is mucosal thickening in the right maxillary sinus. No foreign body is seen Impression: 1. No definite cervical spine fracture 2. Cervical disc bulges without spinal stenosis or definite nerve root compression Electronically signed by Calos Mccarty 06-17-2025 5:13 PM Chest X-Ray 06/17/25 16:23 Clinical History: Fall Technique: A frontal view of the chest was obtained Findings: There are no confluent pulmonary infiltrates. The heart size is at the upper limit of normal. No pleural effusion or pneumothorax is seen. There is right lung base atelectasis No fracture is noted. There is prominent scoliosis Impression: Right lung base atelectasis Electronically signed by Calos Mccarty 06-17-2025 5:19 PM Elbow X-Ray 06/17/25 16:23 Clinical History: Fall 3 views of the right elbow are submitted for review. Findings: No fracture or dislocation is seen. No significant arthritic changes are noted. No other osseous abnormality is identified. There are no radiopaque foreign bodies. Impression: Unremarkable radiographs of the right elbow Electronically signed by Calos Mccarty 06-17-2025 5:[address] 06/17/25 16:23 Clinical History: Injury Technique: Axial computed tomography images were obtained of the brain without intravenous contrast. Findings: There is diffuse cerebral atrophy, within expected limits for the patient's age. Areas of decreased attenuation are seen within the periventricular white matter, likely representing chronic small vessel ischemic disease. There is no definite sign of acute or old infarction. No intracranial hemorrhage is evident. No definite mass lesion is seen on this noncontrast examination. There is no midline shift or other form of herniation. No hydrocephalus is seen. No fracture is identified. The orbits and the visualized paranasal sinuses appear unremarkable. The mastoid air cells appear clear. Impression: 1. Cerebral atrophy and chronic small vessel ischemic disease 2. Otherwise unremarkable noncontrast CT of the brain Electronically signed by Calos Mccarty 06-17-2025 5:02 PM Knee X-Ray 06/17/25 16:23 Clinical History: Fall 3 views of the right knee are submitted for review. Findings: No fracture or dislocation is seen. There is mild joint space narrowing in the medial compartment. There are small osteophytes in all 3 compartments. No other osseous abnormality is identified. There are no radiopaque foreign bodies. Vascular calcifications are present Impression: Mild osteoarthritis Electronically signed by Calos Mccarty 06-17-2025 5:20 PM Tibia/Fibula X-Ray 06/17/25 16:23 Clinical History: Fall 2 views of the right lower leg are submitted for review. Findings: There is internal fixation of the medial malleolus with 2 fixation screws. There is internal fixation of the distal fibular shaft and lateral malleolus with a fixation plate and screws. A fixation screw extending from the distal fibular metadiaphysis into the distal tibial metaphysis is fractured. No definite acute fracture is seen. No subluxation or dislocation is seen. There is mild right knee osteoarthritis. No other osseous abnormality is identified. There are no radiopaque foreign bodies. Impression: Internal fixation of the medial malleolus and distal fibula. One of the metallic screws is fractured. Comparison with prior studies would be useful Electronically signed by Calos Mccarty 06-17-2025 5:17 PM Shoulder X-Ray 06/17/25 16:54 Clinical History: Fall 3 views of the right shoulder are submitted for review. Findings: No fracture or dislocation is seen. There is mild to moderate severity acromioclavicular and glenohumeral osteoarthritis. No other osseous abnormality is identified. There are no radiopaque foreign bodies. There is calcific tendinitis of the rotator cuff Impression: 1. No definite fracture 2. Osteoarthritis 3. Calcific tendinitis of the rotator cuff Electronically signed by Calos Mccarty 06-17-2025 5:19 PM Code Status & VTE Plan Code Status Full code (discussed with both patient and patient's daughter present; patient initially reported that she did not want intubation, however after discussion, she does report that she would want everything done in the emergency situation which could include intubation) VTE Prophylaxis Plan VTE Prophylaxis will be ordered: Yes Supervising Physician Co-Signing Physician Notes MICHELLE Supervision Note: I personally saw and examined the patient. I verified all kelley points and agree with MICHELLE Crockett with the following exceptions and/or additions: S-this patient is a 79-year-old female with history noted as above who presents after mechanical fall related to vertigo and tripping in her driveway. She sustained contusions and did strike her head and has shoulder and ankle pain. Her sodium is low at 128 but has been low off and on chronically in the past. History and ROS otherwise reviewed as above O- Vitals reviewed Gen: AAOx3, NAD HEENT: Anicteric sclerae, EOMI CV: RRR no mgr nl S1S2 Pulm: CTAB no wcr Abd: +BS soft NT ND no masses or hernias Ext: No edema Skin: No rashes, warm/dry Neuro: Full strength throughout CBC, BMP, LFTs, UA, urine osmolality, serum osmolality reviewed Imaging reviewed A/T-24-sqik-old female here with mechanical fall with resulting contusions but no fractures. Also with hyponatremia acute on chronic. Pain control, PT/OT Follow BMP, no acute intervention and will see if sodium improves on its own- okay to continue spironolactone PG Care Time/CCT Total # of Minutes Spent Total Time Spent with Patient: Total time spent is greater than 50% in coordination of care (as documented) at patient's floor/unit and/or counseling patient: Coding [place] [address] INT INP/OBS CARE 2/55MIN Patient Type Established Medical Decision Making Moderate Complexity Diagnoses Recurrent falls R29.6 Anxiety F41.9 Vertigo R42 Hyponatremia E87.1
[2025-06-17 18:51] LABS: Appearance Urine Clear (Clear); Bacteria Urine Automated None Seen (None Seen); Cast Urine Automated 0-2 /lpf (0-2); Epithelial Cell Urine Auto 0-2 /hpf (0-2); Glucose Urine UA 1+ (Negative); RBC Urine Automated 0-2 /hpf (0-2); WBC Urine Automated 0-5 /hpf (0-5)
[2025-06-17] MEDS ORDERED: CETIRIZINE HCL 10 MG TABLET PO PRN (19:51)
[2025-06-17] MEDS ORDERED: MELATONIN 3 MG TAB PO PRN (19:51)
[2025-06-17] MEDS ORDERED: MECLIZINE 12.5 MG TAB PO PRN (19:51)
[2025-06-17] MEDS ORDERED: ARTIFICIAL TEARS OP PRN (20:03)
[2025-06-17] MEDS: ACETAMINOPHEN 325 MG TAB PO PRN (21:51)
[2025-06-17] MEDS: ATORVASTATIN 40 MG TAB PO SCH (21:52)
[2025-06-17] MEDS: DOCUSATE SODIUM 100 MG CAP PO SCH (21:52)
[2025-06-18] MEDS: LEVOTHYROXINE SODIUM 100 MCG TABLET PO SCH (05:59)
[2025-06-18 07:24] VITALS: RESP 16
[2025-06-18 07:57] LABS: Hematocrit (blood only) 33.7 % (37.0-47.0); Hemoglobin 11.7 g/dl (12.0-16.0); Mean Corpuscular Hemoglobin 30.4 pg (25.0-34.0); Mean Corpuscular Volume 87.5 fL (80.0-100.0); Platelet Count 218 K/uL (130-400); RDW Standard Deviation 38.1 fL (36.4-46.3); Red Blood Count 3.85 M/uL (4.20-5.40); White Blood Count 8.01 K/ul (4.8-10.8)
[2025-06-18 08:21] LABS: Anion Gap 8.0 (3-11); Blood Urea Nitrogen 36.0 mg/dl (6-23); Calcium 9.4 mg/dl (8.6-10.3); Carbon Dioxide 22.0 mmol/L (21-32); Chloride 102.0 mmol/L (98-107); Creatinine Clr Calc Pharmacy 27.7 ml/min; Glucose 104.0 mg/dl (70-99(Fasting)); Magnesium 1.7 mg/dl (1.7-2.4); Potassium 4.4 mmol/L (3.5-5.1); Sodium 132.0 mmol/L (136-145)
[2025-06-18] MEDS: ESCITALOPRAM OXALATE 20 MG TAB PO SCH (08:29)
[2025-06-18] MEDS: ANASTROZOLE 1 MG TAB PO SCH (08:29)
[2025-06-18] MEDS: VALSARTAN 80 MG TAB PO SCH (08:29)
[2025-06-18] MEDS: SPIRONOLACTONE 25 MG TAB PO SCH (08:30)
[2025-06-18] MEDS: FLUTICASONE PROPIONATE NA SPR 16 GM BTL SCH (08:31)
[2025-06-18] MEDS: FAMOTIDINE 20MG IV PUSH 20 MG/5 ML SYR IV STA (10:13)
[2025-06-18] MEDS: LIDOCAINE 5% 1 PATCH TD STA (13:48)
[2025-06-18] MEDS: MECLIZINE 12.5 MG TAB PO STA (13:48)
--- NOTE | 2025-06-18 13:54 | Discharge Summary ---
Discharge Summary Date of Service June 18, 2025 Principal Dx & Hospital Course #1 = Principal Diagnosis (1) Recurrent falls: (2) Anxiety: (3) Vertigo: (4) Hyponatremia: (5) Concussion: Plan This patient is a 79-year-old female with PMH of vertigo and recurrent falls, who presented on 06/17 after sustaining a fall at home onto her driveway. Date of discharge 06/18: Mrs. Soto reports that she slept "mediocre" last night. She is still feeling "woozy" whenever she gets up to use the bathroom, but has been able to ambulate to the bathroom with minimal assistance. Eating and drinking okay this morning. She is glad to report she did have a bowel movement this morning. However, she does report that she has some mild "sensitivity of light" with the bright lights in the room this morning. ROS: Patient endorses mild photophobia, feeling off balance, lightheadedness, cough, and some abdominal discomfort/nausea following breakfast, and increased urinary frequency (which she attributes to her Jardiance). Patient denies fever, chills, night sweats, chest pain, chest palpitations, pleuritic CP, SOB, vomiting, diarrhea, or burning with urination. #Recurrent falls Imaging on arrival without acute fractures: Right shoulder without acute fracture, but did reveal calcific tendinitis of the rotator cuff Right tib/fib revealed fracture of one of the metallic screws in her medial malleolus and distal fibula However, patient reported that this was known to her ahead of time, and there has been a problem with the screw for a while Right elbow x-ray unremarkable Head/cervical spine CTs without acute findings Orthostatic vitals ordered, pending Patient declined pain medication on admission Recommend acetaminophen PRN for pain upon discharge PT/OT evaluations appreciated OT recommend patient is safe to #Concussion, mild Noted; (+) Vertical/horizontal saccades with rotary nystagmus on exam Standardized assessment of concussion: Clinically, patient endorses headache, nausea, dizziness, poor balance, blurry vision, sensitivity to light, fatigue, sadness, and irritability GCS 15, no seizures, no neurological deficits, no bowel Feel that patient is safe to return home #Vertigo Patient reports that her head feels like it is "spinning" whenever she stands up Patient notes improvement on 8/14 Trial of meclizine 12.5 mg x 1 in the hospital Patient reports he already has a prescription for meclizine 12.5 mg p.o. PRN at home #Anxiety | depression Patient is currently on alprazolam 1 mg p.o. TID Suspect this may be contributing to falls Discussed with both patient and patient's daughter at bedside Recommend weaning off gradually or decreasing alprazolam to twice daily or HS as an outpatient Continue BuSpar BID Continue escitalopram #Hyponatremia - improving Na trend 128 -> 132; chronic, but lower than baseline Follow-up BMP outpatient #Stage IIIb CKD Creatinine around baseline Avoid nephrotoxic agents for possible #History of left breast cancer Left upper extremity no BP, labs, blood draws Continue anastrozole #HTN | primary aldosteronism Continue amlodipine, valsartan, and spironolactone K WNL on arrival #GERD Continue PPI #Hypothyroidism Continue levothyroxine #HLD Continue atorvastatin Disposition: Discharge home Spoke to patient's daughter (Margarita) at bedside on 06/17 and over the phone on 06/18 to provide updates. While daughter will not be available to care for her mother on day of discharge, her (patient's son-in-law) will be home, and to monitor overnight. Did recommend to daughter that the patient use ambulatory assist devices at home over the next several days while she is recovering from her concussion. Daughter confirms that patient does have both a walker and a cane at home. Alerted daughter of red flag symptoms to look out for in the setting of concussions (vomiting, slurred speech, intractable headache, seizures, or neurologic deficits). Daughter appreciative of conversation. She reports that her son (patient's grandson) is available this afternoon to transport patient home. Notes For Next Care Provider Patient was hospitalized from 06/17 - 06/18 after sustaining a fall onto her driveway at home. Patient closed her front door and was turning when she suddenly felt dizzy. She then lost her balance and fell hard onto her right side. Imaging of the head, neck, and right upper and lower extremities did not reveal any acute abnormalities or fractures. Imaging of the right ankle did reveal a "fracture" in one of the screws in her right ankle, but patient reported this was known to her before the fall. It is suspected that the patient did have a mild concussion due to head strike. Patient received education on concussions prior to discharge, but please be on the look out for red flag symptoms upon follow-up. Patient also reports that she had a fall about a month prior to admission. She is currently on alprazolam 1 mg p.o. 3 times daily. It is strongly recommended that she slowly be weaned off this medication, as it is likely contributing to her falls. Additionally, it is felt that vertigo could be contributing to her falls; she does have meclizine at home, but reports she does not use it because she does not know "when to take it". Resources provided in the hospital on discharge regarding vertigo. Additionally, patient sodium was low at 128 on arrival. While it is chronically low, improved to 132 prior to discharge. Recommend follow-up BMP prior to transitional care appointment. Admission HPI Per Admitting Provider Mrs. Clifton is a 79-year-old female with PMH of anxiety, depression, dyslipidemia, primary aldosteronism, MAGGIE, and HTN. She presented on 06/17 after she fell down a step while going outside. She landed hard on her right side on the asphalt in her driveway. No LOC. Positive head strike. No blood thinners. While patient reports that she "lost her footing" she did not report that she turned her head after closing the door and felt dizzy. She shuffled off of the lip with the door falling on the right side and striking her right eyebrow. Patient does have history of vertigo, and has been feeling vertiginous as of late; mainly when she lies down at night; dizziness at rest. She does have meclizine, but has not been using it (as she is never sure when she should take it). She has had an Cintia maneuver performed in the past, which did help with her vertigo for a small amount of time. Patient lives with her daughter. She denies prior history of concussions. She does have a history of recent fall approximately 1 month ago, that occurred in a similar fashion. Today, she was unable to get up off the ground on her own. She does have a cane at home, but does not ambulate with it. Patient took her regular morning medicines today. Only recent change in medications is that she was started on Jardiance 2 to 3 months ago. Patient manages her own medicine at home. No sick contacts. No tinnitus. No change in her vision. She denies smoking, tobacco use, recent alcohol use. Patient declines pain medication on admission. When asked if patient would feel safe returning home tonight, she reports she would not feel safe returning home, as she lives with her daughter, however her daughter will be unavailable tomorrow due to her granddaughter's Lisfranc surgery. Patient is mildly hypertensive at 151/83 at time of admission; vitals otherwise stable. ED course: Tdap IM x 1 ROS: Patient endorses headache, right shoulder pain, and dizziness that regular occurs with sudden motions, but can also occur at rest when she lays her head the wrong way. Patient denies fever, night sweats, changes in vision, tinnitus, chest pain, shortness of breath, cough, abdominal pain, N/V/D, or changes in urinary/bowel habits. Admission Exam Per Admitting Provider General: no acute distress; daughter at bedside; pleasant affect; non-toxic appearing; well-nourished; cooperative; SpO2 99% on RA HEENT: Superficial bruise/laceration noted on the lateral right eyebrow, approximately 0.5 inches; no scleral icterus; PERRLA w/ EOMs intact; patient does exhibit positive vertical and horizontal saccades with rotary nystagmus appreciated following attempt; vision appears intact; hard of hearing; TMs pearly burton b/l, canal are non-erythematous Neck: supple; trachea midline Right shoulder: Mildly TTP; no bruising appreciated Skin: warm, dry without signs of tenting; no cyanosis; no rashes, bruising, lesions, or erythema noted CV: chest wall NTP; RRR; S1/S2 normal; no murmurs/rubs/gallops; pulses intact and symmetric at radial, DP, and PT Lungs: no acute respiratory distress; symmetrical chest wall expansion; clear breath sounds across all lung reyes w/o adventitious sounds; no wheezing ABD: Soft, NTP; BS present; no rebound/guarding; no distention MSK: no tics or fasciculations; no edema noted in the LEs b/l, nonerythematous; patient demonstrates to ability to wiggle toes bilaterally, and lift legs off the bed against resistance with 4/5 strength bilaterally Neuro: A&Ox3; normal mood and affect; fluent speech; no focal deficits; patient reports sensation is intact and symmetric in the lower extremities bilaterally Gait: patient exhibits mild postural sway, but is steady on her feet traveling to bathroom; does report "head spinning" immediately after standing Discharge Exam General: no acute distress; pleasant affect; non-toxic appearing; cooperative; SpO2 97% on RA HEENT: Superficial bruise/laceration noted on the lateral right eyebrow, approximately 0.5 inches; no scleral icterus; PERRLA w/ EOMs intact; vision appears intact; hard of hearing Neck: supple; trachea midline Skin: warm, dry without signs of tenting; no cyanosis CV: chest wall NTP; RRR; S1/S2 normal; no murmurs/rubs/gallops; pulses intact and symmetric at radial, DP, and PT Lungs: no acute respiratory distress; symmetrical chest wall expansion; clear breath sounds across all lung reyes w/o adventitious sounds; no wheezing ABD: Soft, NTP; BS present; no rebound/guarding; no distention MSK: no tics or fasciculations; no edema noted in the LEs b/l, nonerythematous; 5/5 brusher and shearer strength bilaterally patient demonstrates to ability to wiggle toes bilaterally, and lift legs off the bed against resistance with 4/5 strength bilaterally Neuro: A&Ox3; normal mood and affect; fluent speech; no focal deficits; patient reports sensation is intact and symmetric in the upper and lower extremities bilateral Gait: Patient is able to ambulate to the bathroom independently Discharge Plan Discharge Items Patient Disposition: Home - Self-Care Reason For Visit: RECURRENT FALLS Discharge Diagnosis: Fall, concussion Condition on Discharge: Good Activity: Resume your previous activity Activity Comment: Gradually resume previous activity as tolerated Non-emergency contact: Primary Care Provider Call non-emergency contact if: you have any medication questions, your symptoms worsen, your pain is not controlled, your pain is worsening and you have a fever Follow-up/Referrals: Natalie Martell MD [Primary Care Provider] - 06/29/25 2:20 pm Diet: Regular Addtl Attending Provider Instructions: You were hospitalized at [facility] from 06/17 - 06/18 after sustaining a fall at home. This fall was likely caused by balance issues associated with vertigo. On arrival, imaging of the head and neck did not reveal any acute intracranial abnormality or fractures. Imaging of your right shoulder, elbow, knee, and tibia/fibula also did not not reveal any acute fractures. Your vitals remained stable throughout your hospital course. You are seen and examined by our Occupational Therapy team, who felt that you were presenting near your functional baseline with self-care tasks; they feel that you are safe to return home with continued daughter support once medically stable. While your formal PT evaluation is still pending, it is strongly recommended that you use your walker and cane at home to assist with ambulation over the next several days as you remain at high risk for falls. Based on your presentation, it is suspected that you have a mild concussion. Most people recover fully from mild concussion; however, there is no exact timeline on recovery: it may take days, weeks, or months. A handout has been attached to your discharge paperwork outlining instructions of how to manage your concussion at home over the next several days. For pain control, it is recommended that you take Tylenol 500 mg tablets every 4 hours as needed. Please do not exceed 3000 mg of Tylenol daily. You may also benefit from lidocaine patches 4% patches for your right shoulder, which can be obtained [id number] at your local pharmacy. Please plan to follow-up with your PCP in the next 1 to 2 weeks for a transitional care appointment. Prior to this appointment, we recommend that you have blood work drawn (a basic metabolic panel) to assess your sodium levels, which were low on arrival, but improving at time of discharge. We also discussed in the hospital that your alprazolam (i.e. "Xanax") could be contributing to your falls. It is recommended that you wean down on this medication if possible. If you develop any new or worsening symptoms, such as intractable headache, fevers, chills, acute onset of vomiting, severe sensitivity to light, confusion, urinary/bowel incontinence, slurred speech, unilateral deficits, or trouble breathing, please return to the emergency department immediately. It was a pleasure taking care of you. Please reach out any questions or concerns. Sincerely, The Hospital medicine team at [facility] Pending Studies at Discharge: No Stand-Alone Forms: My [facility] Medications and DC Order Prescriptions: Continued levothyroxine 100 mcg tablet 100 mcg PO QAM Qty: 90 3RF atorvastatin 40 mg tablet 40 mg PO QPM Qty: 90 3RF omeprazole 20 mg tablet,delayed release (DR/EC) 20 mg PO BID Qty: 180 1RF buspirone 7.5 mg tablet 7.5 mg PO BID Qty: 180 1RF Jardiance 10 mg tablet 10 mg PO QAM Qty: 30 4RF alprazolam 1 mg tablet 1 mg PO TID Qty: 90 0RF iVizia (PF) 0.5 % drops 1 drp ophthalmic (eye) BID Patient Comments: 06/17- otc unable to verify Systane Gel 0.3 % gel 1 drp ophthalmic (eye) .QHS PRN (Reason: .) Patient Comments: 06/17- otc unable to verify meclizine 12.5 mg tablet 12.5 mg PO TID PRN (Reason: .dizzyness) Patient Comments: 06/17- otc unable to verify cetirizine 10 mg tablet 10 mg PO DAILY PRN (Reason: allergy symptoms) Qty: 30 0RF Patient Comments: 06/17-last filled 02/03 30 day supply PreserVision AREDS 4,296 mcg-226 mg-90 mg capsule 1 cap PO BID Patient Comments: 06/17- otc unable to verify acyclovir 800 mg tablet 0 mg PO Q8H PRN (Reason: Outbreak) Patient Comments: 06/17- last filled 07/23/24 7 day supply Rx Instructions: as needed for outbreak anastrozole 1 mg Tablet 1 mg PO QAM docusate sodium [Stool Softener] 100 mg Tablet 100 mg PO QPM Patient Comments: 06/17- otc unable to verify omega-3 fatty acids Capsule 1 cap PO BID Patient Comments: 06/17- otc unable to verify Probiotic Blend 2 billion cell-50 mg Capsule 1 cap PO QAM Patient Comments: 06/17- otc unable to verify calcium carbonate [Calcium 600] 600 mg calcium (1,500 mg) tablet 1,200 mg PO QPM Patient Comments: 06/17- otc unable to verify cholecalciferol (vitamin D3) [Vitamin D3] 25 mcg (1,000 unit) tablet 1,000 unit PO UD Patient Comments: 06/17- otc unable to verify amlodipine 10 mg tablet 10 mg PO QAM Rx Instructions: 30 day supply while traveling valsartan 320 mg tablet 320 mg PO QAM spironolactone 50 mg tablet 50 mg PO QAM Rx Instructions: 30 day supply while traveling . escitalopram oxalate 20 mg tablet 20 mg PO QAM fluticasone propionate [Allergy Relief (fluticasone)] 50 mcg/actuation spray,suspension 0 spray intranasal DAILY Patient Comments: 06/17- last filled 02/03 30 day supply Rx Instructions: administer into each nostril Discharge Orders: Discharge Order (Routine); Ordered 06/18/25 Ordered By: Balwinder Rios/Other Patient Handouts: After a Concussion, ED Vertigo, Unspecified, Preventing Falls in the Home Admission Data Admit Date/Time: 06/17/25 18:18 Attending Provider: Ruben Greenwood Admit Provider: Selena Butler Primary Care Provider: Natalie Martell Other Providers: Selena Butler Hospital Stay Data Consultations 06/17/25 17:37 ED Decision to Admit Stat Diagnostic Imagining Performed 06/17/25 16:23 CT cervical spine wo con Stat CT head/brain wo con Stat Pending Results Patient Have Any Pending Studies at Discharge: No Discharge Instructions Given to Patient (Per Discharging Provider) You were hospitalized at [facility] from 06/17 - 06/18 after sustaining a fall at home. This fall was likely caused by balance issues associated with vertigo. On arrival, imaging of the head and neck did not reveal any acute intracranial abnormality or fractures. Imaging of your right shoulder, elbow, knee, and tibia/fibula also did not not reveal any acute fractures. Your vitals remained stable throughout your hospital course. You are seen and examined by our Occupational Therapy team, who felt that you were presenting near your functional baseline with self-care tasks; they feel that you are safe to return home with continued daughter support once medically stable. While your formal PT evaluation is still pending, it is strongly recommended that you use your walker and cane at home to assist with ambulation over the next several days as you remain at high risk for falls. Based on your presentation, it is suspected that you have a mild concussion. Most people recover fully from mild concussion; however, there is no exact timeline on recovery: it may take days, weeks, or months. A handout has been attached to your discharge paperwork outlining instructions of how to manage your concussion at home over the next several days. For pain control, it is recommended that you take Tylenol 500 mg tablets every 4 hours as needed. Please do not exceed 3000 mg of Tylenol daily. You may also benefit from lidocaine patches 4% patches for your right shoulder, which can be obtained [id number] at your local pharmacy. Please plan to follow-up with your PCP in the next 1 to 2 weeks for a transitional care appointment. Prior to this appointment, we recommend that you have blood work drawn (a basic metabolic panel) to assess your sodium levels, which were low on arrival, but improving at time of discharge. We also discussed in the hospital that your alprazolam (i.e. "Xanax") could be contributing to your falls. It is recommended that you wean down on this medication if possible. If you develop any new or worsening symptoms, such as intractable headache, fevers, chills, acute onset of vomiting, severe sensitivity to light, confusion, urinary/bowel incontinence, slurred speech, unilateral deficits, or trouble breathing, please return to the emergency department immediately. It was a pleasure taking care of you. Please reach out any questions or concerns. Sincerely, The Hospital medicine team at [facility] Total Time Total Time Spent Total Time Spent (In Minutes): 45 [place] [address] INP/OBS DISCH >30 MIN Patient Type Established History Comprehensive Exam Comprehensive Medical Decision Making Moderate Complexity Diagnoses Recurrent falls R29.6 Anxiety F41.9 Vertigo R42 Hyponatremia E87.1 Concussion S06.0XAA
[2025-06-18] MEDS ORDERED: EMPAGLIFLOZIN 10 MG TAB PO STA (14:23)
[2025-06-18 14:43] VITALS: BP 123/72; PULSE 71; TEMP 98.6; O2SAT 93
[2025-06-18] MEDS ORDERED: REMOVE LIDODERM PATCH SCH (21:00)
== END 2025-06-18 16:38 | disposition home or self-care (01) ==
LOC: SUATTDRO → EDINP 16:04 → ED 16:04 → SUATTDRO 18:18 → 3N 19:51